=== PATIENT | female | born 1950 | race Caucasian/White ===

== ENCOUNTER → 2017-04-06 | Outpatient (CLI) | payer MEDICARE, BC | END | disposition home or self-care (01) | LOC: LABWHC1 08:48 | PROVIDERS: ATTEND Orthopaedic Surgery Orthopaedic Surgery of the Spine | DX: Z01.812 Encounter for preprocedural laboratory examination (principal); Z01.83 Encounter for blood typing | CPT/HCPCS: 36415; 86850; 86900; 86901 ==

== ENCOUNTER 2017-04-11 09:00 | Day surgery (SDC) | payer MEDICARE, BC ==
[2017-04-03 16:24] VITALS: BMI 36.2
[~2017-04-11 09:00] MED LIST: BACITRACIN 50,000 UNIT, POLYMYXIN B 500,000 UNIT in SODIUM CHLORIDE 0.9% IRRIGATIO 1,00... IRRIGATION ONE; HYDROmorphone 0.5 MG/0.5 ML SYRINGE IVP PRN; LIDOCAINE 1% 20 ML VIAL (10MG/ML) FOR IV START INTRADERMA PRN; ONDANSETRON 4 MG/2 ML VIAL IVP ONE; ceFAZolin 2 GM in SODIUM CHLORIDE 0.9% 100 ML IVPB ONE
[2017-04-11] MEDS: LACTATED RINGERS 1,000 ML IV SCH (10:00)
[2017-04-11 10:05] LABS: Glucose,Whole Blood 200 mg/dL (75-99)
[2017-04-11] MEDS ORDERED: MIDAZOLAM 2 MG/2 ML VIAL ONE (10:24)
[2017-04-11] MEDS ORDERED: LIDOCAINE 1% INJ 10MG/ML (20 ML MDV) ONE (10:24)
[2017-04-11] MEDS ORDERED: fentaNYL (PF) 50 MCG/ML 2 ML AMP ONE (10:24)
[2017-04-11] MEDS ORDERED: GELATIN SPONGE,ABSORB (LARGE) 1 EACH SPONGE TOPICAL ONE (10:24)
[2017-04-11] MEDS ORDERED: GLYCOPYRROLATE 0.2 MG/ML 2 ML VIAL ONE (10:24)
[2017-04-11] MEDS ORDERED: PROPOFOL 10 MG/ML 20 ML VIAL IV ONE (10:24)
[2017-04-11] MEDS ORDERED: NEOSTIGMINE 1 MG/ML 10 ML VIAL ONE (10:24)
[2017-04-11] MEDS ORDERED: PHENYLEPHRINE-0.9% NACL SYG 1 MG/10 ML SYRINGE ONE (10:24)
[2017-04-11] MEDS ORDERED: THROMBIN (BOVINE) 5,000 UNIT VIAL TOPICAL ONE (10:24)
[2017-04-11] MEDS ORDERED: LIDOCAINE 0.5% (PF) 5 MG/ML (50 ML SDV) SQ ONE (10:24)
[2017-04-11] MEDS ORDERED: SUCCINYLCHOLINE CHLORIDE 100 MG/5 ML SYR IV ONE (10:24)
[2017-04-11] MEDS ORDERED: BUPIVACAINE (PF) 0.25% 30 ML VIAL SQ ONE (10:24)
[2017-04-11] MEDS ORDERED: ROCURONIUM BROMIDE 10 MG/ML 10 ML VIAL IV ONE (10:24)
[2017-04-11] MEDS ORDERED: methylPREDNISolone ACETATE 40 MG/ML 1 ML VIAL MISCELLANE ONE (11:42)
[2017-04-11] MEDS ORDERED: KETOROLAC 30 MG/ML 1 ML VIAL IVP PRN (12:00)
[2017-04-11] MEDS ORDERED: ONDANSETRON 4 MG/2 ML VIAL IVP PRN (12:00)
[2017-04-11] MEDS ORDERED: BENZOCAINE/MENTHOL LOZENG 1 EACH LOZENGE MUCOUS MEM PRN (12:00)
[2017-04-11] MEDS ORDERED: HYDROcodone/APAP 5-325MG 1 EACH TAB PO PRN (12:00)
[2017-04-11] MEDS ORDERED: HYDROmorphone 0.5 MG/0.5 ML SYRINGE IVP PRN (12:00)
[2017-04-11] MEDS ORDERED: HYDROmorphone 1 MG/ML 1 ML SYRINGE IVP PRN (12:00)
[2017-04-11] MEDS ORDERED: DIAZEPAM 5 MG TAB PO PRN (12:00)
[2017-04-11] MEDS ORDERED: MAGNESIUM HYDROXIDE 2,400 MG/10 ML CUP PO PRN (12:00)
[2017-04-11] MEDS ORDERED: HYDROcodone/APAP 10-325MG 1 EACH TAB PO PRN (12:03)
--- NOTE | 2017-04-11 12:10 | P.OP ---
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 Choudhary Premix Concrete Batcher: Leo MCDONNELL who is present throughout the entire the case persistence during positioning, dissection, exposure, visualization, and all crucial elements of the case as well as closure. Anesthesia: General anesthesia Estimated blood loss: Approximately 40 mL Complications: None apparent Components implanted: [employer] Coflex interlaminar stabilization device,10 mm at L2-3 Disposition: To recovery room in good stable condition. OPERATIVE INDICATIONS The patient has been having issues in their lower back and lower extremities. sheas having evidence of significant neurogenic claudication and spinal stenosis along with issues with lower extremity radiculopathy. her function has become progressively worse to the cause of her stenosis and neurogenic claudication and she was having worsening debility. She was found to have significant spinal stenosis at L2-3 which correlated well with his low back and lower extremity symptoms. she had a prior fusion from L3 to 5 which appeared stable. She has adjacent level degeneration at L2-3. She had gone through her decompression and fusion several years ago and had done well with that until the past several months where she is having worsening of her pain and symptoms which appear to stem from her adjacent level at L2-3. The patient has been through conservative treatment. she is not having any prolonged benefit despite aggressive conservative treatment Witherng the level of his stenosis and his propensity for the possibility of recurrent stenosis I felt that decompression with intralaminar stabilization would be a good benefit foher. We discussed various treatment options including surgery, and the patient wishes to proceed with surgery We discussed the risk, patient's alternatives and benefits of surgery including but not limited to, risk of bleeding risk of infection, risk of need for further surgery, risk of decreased , loss of motion, loss of function, nerve damage, paralysis, heart attack, blindness and . OPERATIVE SUMMARY After discussing all the risks, patient alternatives and benefits at length, the patient elected to proceed with surgical intervention, signed informed consent, and presented for their procedure. The patient was seen and examined in the preoperative holding area and the surgical site was marked. The patient was given antibiotics and brought to the operating room. The patient was sedated and intubated by anesthesia in standard fashion. The patient was positioned on to the operating room table in a prone position on the appropriate frame which was well-padded and well molded. We were careful to pad any bony prominences and pressure points. We were careful to maintain the patient's cervical spine and good neutral alignment and position throughout. The patient was prepped and draped in a normal standard fashion. An appropriate timeout and keystone protocol performed. We were able to proceed with the surgery. Fluoroscopy was utilized to establish the appropriate level. The local wound area was infiltrated with local anesthetic. An incision was made at the midline longitudinally over the appropriate levels At L2-3 utilizing her prior incision and cephalad. Dissection was taken down subcutaneously to the level of the fascia which was split midline. Dissection was taken over the lamina. Intraoperative fluoroscopy was taken which showed a marker at the appropriate level at L2-3. With the appropriate level positively confirmed, we were able to proceed with laminectomy At L2-3 bilaterally. The wound was copiously irrigated and suctioned dry as had been done periodically throughout the case. I performed a laminectomy with a combination of curettes and a high-speed bur and Kerrison rongeurs. A small medial facetectomy was performed again further access. This was done bilaterally at that level. A partial foraminotomy was also performed Bilaterally to get good foraminal decompression. Portions of the ligamentum flavum were taken down to expose the dura and traversing nerve root. the ligament was significantly thickened as was the capsule around the facet joints bilaterally and these were removed to get good decompression centrally and at the neural foramen There is no evidence of dural tear or leak. Good hemostasis maintained. The wound was copiously irrigated and suctioned dry. Good decompression was noted. At this point further prepared the interspinous process and interlaminar space with a combination of curettes and a high-speed bur and Kerrison rongeurs. As able get good parallel alignment at the interspinous process space and interlaminar space. I used a trial spacer for the Coflex device and have good fit and fill with the appropriate size device. I had to shave down the spinous process at to allow for appropriate positioning of the Coflex device. The device was prepared and then positioned and malleted in position with good alignment and good position and good bony purchase at the interlaminar space. The position was checked and found to be approximately 3 mm away from the dura without impingement on the dura itself. It was checked and found to be stable. Intraoperative C-arm was utilized to confirm the alignment and position at the appropriate levelsAt L2-3 with the hardware at L3 to L5 stable. We were able to proceed with closure. The fascia was closed for a watertight closure. The subcuticular tissue was closed with absorbable suture. The wound was cleaned and dried and dressed with the appropriate dressing. The drapes were broken down. The patient was gently rolled back onto their hospital bed being careful to maintain their cervical spine and good neutral alignment and position. They were woken up by anesthesia, extubated, and brought to the recovery room in good stable condition. The patient will be admitted to the hospital for observation and for appropriate postoperative care, medical management and monitoring. We will continue to follow them closely about the postoperative course.
[2017-04-11 12:29] LABS: Glucose,Whole Blood 188 mg/dL (75-99)
--- NOTE | 2017-04-11 12:43 | FL ---
EXAMINATION TYPE: FL guidance operating room DATE OF EXAM: 04/11/2017 CLINICAL HISTORY: Back pain TECHNIQUE: Fluoroscopy. COMPARISON: None. FINDINGS/IMPRESSION: Fluoroscopic guidance was provided during procedure performed by Dr. Faust. A total of 7 seconds of fluoroscopic time was utilized during the procedure.
[2017-04-11] MEDS: SODIUM CHLORIDE 0.9% 1,000 ML IV SCH (13:09)
[2017-04-11] MEDS: HYDROcodone/APAP 5-325MG 1 EACH TAB PO PRN ×3 (13:28→22:41)
--- NOTE | 2017-04-11 13:49 | XR ---
EXAMINATION TYPE: XR lumbar spine 2 or 3V DATE OF EXAM: 04/11/2017 CLINICAL HISTORY: Back pain. Laminectomy. TECHNIQUE: Fluoroscopy. COMPARISON: None. FINDINGS/IMPRESSION: Fluoroscopic guidance was provided during procedure performed by Dr. Choudhary. 1 paper film was acquired.
[2017-04-11 17:34] LABS: Glucose,Whole Blood 197 mg/dL (75-99)
[2017-04-11] MEDS: ceFAZolin 2 GM in SODIUM CHLORIDE 0.9% 100 ML IVPB SCH (18:13)
[2017-04-11] MEDS: INSULIN LISPRO (humaLOG) 300 UNIT/3 ML VIAL SQ SCH (18:13)
[2017-04-11 20:32] LABS: Glucose,Whole Blood 92 mg/dL (75-99)
[2017-04-11] MEDS: GABAPENTIN 300 MG CAP PO SCH (20:57)
[2017-04-11] MEDS ORDERED: SERTRALINE 100 MG TAB PO SCH (21:00)
[2017-04-12] MEDS: ceFAZolin 2 GM in SODIUM CHLORIDE 0.9% 100 ML IVPB SCH (02:44)
[2017-04-12] MEDS: HYDROcodone/APAP 5-325MG 1 EACH TAB PO PRN (02:44)
[2017-04-12 07:31] LABS: Glucose,Whole Blood 190 mg/dL (75-99)
[2017-04-12] MEDS: SODIUM CHLORIDE 0.9% 1,000 ML IV SCH (07:33)
[2017-04-12] MEDS: LACTATED RINGERS 1,000 ML IV SCH (07:33)
[2017-04-12 07:45] VITALS: BP 138/74; PULSE 67; RESP 18; TEMP 98.2
[2017-04-12] MEDS: INSULIN LISPRO (humaLOG) 300 UNIT/3 ML VIAL SQ SCH (07:48)
[2017-04-12] MEDS: GABAPENTIN 300 MG CAP PO SCH (07:51)
--- NOTE | 2017-04-12 07:51 | P.DS ---
Providers Date of admission: The patient presented on the day of admission as per her operative note. She feels her legs are doing quite well. She feels that she has some relief with the pain in her legs when she gets up. She has been able get up out of bed and has been able to void on her own. Her back is sore as expected but is controlled with pain medication. Physical Exam The incision site is clean dry and intact. There is no erythema no drainage. There is no purulence no evidence of infection. There is no active drainage Abdomen soft and nontender. Chest has good excursion with deep inspiration and expiration. The patient has active and passive range of motion intact at the upper and lower extremities. There is no acute change in neurologic status. She has sustained dorsiflexion plantar flexion and EHL intact at her lower extremities. Her thighs and calves are soft and nontender. Hospital Course Postoperative day #1 status post laminectomy decompression at L2 to 3 where she had severe spinal stenosis and adjacent level degeneration with prior history of fusion L3 to 5. She had placement of a interlaminar stabilization device which appears to be stable. The patient has been making good progress postoperatively. They have completed the prophylactic antibiotics without any signs or symptoms of infection. The patient has been able to advance their diet, and is tolerating diet adequately. The pain was initially controlled with IV medications and is now controlled appropriately with oral medications. The patient has been able to increase their mobilization. The patient has progressed appropriately. I think they are in good stable condition for discharge today. They will be sent home with appropriate prescriptions. I answered their questions to the best of my ability in a language that they can understand and they are agreeable with the plan. They will follow up as directed in approximately 2 weeks or sooner if she is having any problems. Attending physician: Sandra Choudhary Primary care physician: Cora Terry Plan - Discharge Summary New Discharge Prescriptions: No Action Temazepam 30 mg PO HS Sertraline HCl [Zoloft] 100 mg PO HS Rosuvastatin Calcium [Crestor] 10 mg PO Q48H rOPINIRole HCL [Requip] 1.0 mg PO HS Gabapentin [Neurontin] 600 mg PO BID Benazepril [Lotensin] 10 mg PO QAM HYDROcodone/APAP 10-325MG [Rudyard 10-325] 1 each PO Q4HR PRN #90 tab PRN Reason: Pain INSULIN LISPRO (HumaLOG) [HumaLOG] 60 unit SQ BID tiZANidine HCL [Zanaflex] 2 mg PO BID Discharge Medication List Benazepril [Lotensin] 10 mg PO QAM 05/28/14 [History] Gabapentin [Neurontin] 600 mg PO BID 05/28/14 [History] Rosuvastatin Calcium [Crestor] 10 mg PO Q48H 05/28/14 [History] Sertraline HCl [Zoloft] 100 mg PO HS 05/28/14 [History] Temazepam 30 mg PO HS 05/28/14 [History] rOPINIRole HCL [Requip] 1.0 mg PO HS 05/28/14 [History] HYDROcodone/APAP 10-325MG [Rudyard 10-325] 1 each PO Q4HR PRN #90 tab 06/11/14 [Rx ] INSULIN LISPRO (HumaLOG) [HumaLOG] 60 unit SQ BID 04/03/17 [History] tiZANidine HCL [Zanaflex] 2 mg PO BID 04/03/17 [History] Follow up Appointment(s)/Referral(s): Sandra Choudhary DO [Doctor of Osteopathic Medicine] - 2 Weeks (With Leo Ramsey at Dr. Choudhary's office) Activity/Diet/Wound Care/Special Instructions: May ambulate to tolerance. Avoid heavy or rigorous activity. No repetitive bending stooping or twisting. Keep site clean. May shower with waterproof Tegaderm intact. Do not soak in a tub. On Sunday May shower with area uncovered but leave Steri-Strips intact and allow them to fray off on their own. Discharge Disposition: HOME SELF-CARE
[2017-04-12] MEDS ORDERED: SENNOSIDES-DOCUSATE SODIUM 1 EACH TAB PO SCH (09:00)
[2017-04-12] MEDS ORDERED: LISINOPRIL 10 MG TAB PO SCH (09:00)
[2017-04-12 12:53] LABS: Hemoglobin A1C 8.8 % (4.2-6.1)
[2017-04-12] MEDS ORDERED: ATORVASTATIN 20 MG TAB PO SCH (21:00)
== END 2017-04-12 10:10 | disposition home or self-care (01) ==
LOC: OR 09:00 → 3SUR 12:08 → OR 04-12 10:10
PROVIDERS: ATTEND Orthopaedic Surgery Orthopaedic Surgery of the Spine
DX: M48.062 Spinal stenosis, lumbar region with neurogenic claudication (principal); M51.16 Intervertebral disc disorders with radiculopathy, lumbar region; M47.26 Other spondylosis with radiculopathy, lumbar region; Z98.1 Arthrodesis status; I10 Essential (primary) hypertension; E11.9 Type 2 diabetes mellitus without complications; Z79.4 Long term (current) use of insulin; F32.9 Major depressive disorder, single episode, unspecified; Z87.891 Personal history of nicotine dependence; E78.5 Hyperlipidemia, unspecified; Z79.891 Long term (current) use of opiate analgesic; Z79.899 Other long term (current) drug therapy; Z88.1 Allergy status to other antibiotic agents; Z88.5 Allergy status to narcotic agent; Z88.2 Allergy status to sulfonamides
CPT/HCPCS: 63047; 22859; 97161; 83036; 72100; C1713; J2250; J1030; J2710; J0690 ×2; J2405; J2001 ×2; J3010; J2370; J0330; J2704; 36415; 86850; 86900; 86901

== ENCOUNTER → 2017-07-17 | Outpatient (CLI) | payer MEDICARE, BC ==
[2017-07-17 16:22] LABS: Blood Urea Nitrogen 14 mg/dL (7-17)
--- NOTE | 2017-07-17 21:56 | CT ---
EXAMINATION TYPE: CT abdomen w con DATE OF EXAM: 07/17/2017 HISTORY: Upper Abdominal discomfort for 6 months. Generalized abdominal pain per order. CT DLP: 1478.9mGycm Automated Exposure Control for Dose Reduction was Utilized. CONTRAST: CT scan of the abdomen is performed with oral and with IV Contrast, patient injected with 100 mL of O mnipaque 300. COMPARISON: CT abdomen and pelvis July 25, 2010. FINDINGS: LUNG BASES: There is elevated right hemidiaphragm with chronic right basilar consolidation or scarrin g. There is left basilar linear scarring and/or atelectasis anteriorly. There is stable tiny pericard ial effusion anterior inferior right lateral aspect near axial image 25 redemonstrated. LIVER/GB: No significant abnormality is appreciated. PANCREAS: No significant abnormality is seen. SPLEEN: No significant abnormality is seen. ADRENALS: No significant abnormality is seen. KIDNEYS: No significant abnormality is seen. BOWEL: Oral contrast does not reach colonic level. There is no suspicious small or large bowel dilata tion. LYMPH NODES: No greater than 1cm abdominal lymph nodes are appreciated. OSSEOUS STRUCTURES: There is new posterior fusion hardware bilaterally L3-L5 levels. There is artific ial metallic disc L4-L5 level. There is moderate to severe disc space narrowing endplate sclerosis, v acuum disc phenomenon, and moderate anterior spurring L2-L3 level. There is additional moderate multi level spurring throughout the visualized thoracolumbar spine. There is moderate to severe disc space narrowing with vacuum disc phenomenon L5-S1 level. OTHER: No significant additional abnormality is seen. IMPRESSION: No significant new or acute finding is seen to account for patient's clinical symptoms.
== END | disposition home or self-care (01) ==
LOC: RADCTMAIN 15:50
PROVIDERS: ATTEND Family Medicine
DX: R10.84 Generalized abdominal pain (principal)
CPT/HCPCS: 82565; 84520; 74160; 36415; Q9967

== ENCOUNTER → 2018-01-23 | Outpatient (CLI) | payer MEDICARE, BC ==
--- NOTE | 2018-01-25 10:40 | MM ---
Reason for exam: screening (asymptomatic). Last mammogram was performed 6 years and 5 months ago. History: Family history of breast cancer in mother at age 72. Benign left mammotome panel of the left breast, January 18, 2009. Reductions of both breasts, 1986. Took estrogen for 25 years beginning at age 29. Physical Findings: A clinical breast exam by your physician is recommended on an annual basis and results should be correlated with mammographic findings. MG 3D Screening Mammo W/Cad Bilateral CC and MLO view(s) were taken. Prior study comparison: August 16, 2011, bilateral digital screening mammo w/CAD. February 23, 2010, bilateral diagnostic digital mammog. There are scattered fibroglandular densities. Increasing nodularity posteriorly on both CC views. Also increasing 3-4 o'clock calcifications left breast adjacent to a prior biopsy clip. ASSESSMENT: Incomplete: need additional imaging evaluation, BI-RAD 0 RECOMMENDATION: Special view mammogram of both breasts. If lesion persists on supplemental views, image directed ultrasound is recommended. [facility] will attempt to contact patient to return for supplemental views and ultrasound if indicated.
== END | disposition home or self-care (01) ==
LOC: RADMAMWWP 09:22
PROVIDERS: ATTEND Family Medicine
DX: Z12.31 Encounter for screening mammogram for malignant neoplasm of breast (principal); Z80.3 Family history of malignant neoplasm of breast
CPT/HCPCS: 77063; 77067

== ENCOUNTER → 2018-02-04 | Outpatient (CLI) | payer MEDICARE, BC ==
--- NOTE | 2018-02-06 12:59 | MM ---
Reason for exam: additional evaluation requested from abnormal screening. Last mammogram was performed less than 1 month ago. History: Patient is postmenopausal. Family history of breast cancer in mother at age 72. Benign left mammotome panel of the left breast, January 18, 2009. Reductions of both breasts, 1986. Took estrogen for 25 years beginning at age 29. Physical Findings: Nurse did not find any significant physical abnormalities on exam. MG 3D Work Up W/Cad MARSHA Bilateral CC and MLO view(s) were taken. Technologist: RT Maribel (R)(M) Prior study comparison: January 23, 2018, bilateral MG 3d screening mammo w/cad. August 16, 2011, bilateral digital screening mammo w/CAD. Finding: There are coarse heterogeneous calcifications in the left breast at clip through increase in number since 2011 have similar morphology to prior biopsied calcifications. There is a chronic nodularity in the left breast persists. These results were verbally communicated with the patient and result sheet given to the patient on 02/04/18. ASSESSMENT: Incomplete: need additional imaging evaluation, BI-RAD 0 RECOMMENDATION: Ultrasound of the left breast. (inner lower quadrant)
--- NOTE | 2018-02-06 13:01 | USB ---
Reason for exam: additional evaluation requested from abnormal screening. History: Patient is postmenopausal. Family history of breast cancer in mother at age 72. Benign left mammotome panel of the left breast, January 18, 2009. Reductions of both breasts, 1986. Took estrogen for 25 years beginning at age 29. US Breast Workup Limited LT Left limited breast ultrasound including focal area of concern, retroareolar and axilla demonstrates a 0.4 x 0.3 x 0.3cm oval, hypoechoic lesion too small to characterize at 4 o'clock and a 0.5 x 0.3 x 0.4cm oval, cystic lesion at 5 o'clock. These results were verbally communicated with the patient and result sheet given to the patient on 02/04/18. ASSESSMENT: Probably benign, BI-RAD 3 RECOMMENDATION: Follow-up diagnostic mammogram of the left breast in 6 months.
== END | disposition home or self-care (01) ==
LOC: RADMAMWWP 07:39
PROVIDERS: ATTEND Family Medicine
DX: R92.8 Other abnormal and inconclusive findings on diagnostic imaging of breast (principal)
CPT/HCPCS: 77066; 76642; G0279; 77062

== ENCOUNTER 2019-03-05 11:36 | Inpatient (IN) | payer MEDICARE, BC ==
[2019-03-05] MEDS ORDERED: SODIUM CHLORIDE 0.9% 1,000 ML IV STA ×2 (12:06)
[2019-03-05] MEDS ORDERED: SODIUM CHLORIDE 0.9% 500 ML 500 ML IV STA (12:06)
[2019-03-05] MEDS ORDERED: ONDANSETRON 4 MG/2 ML VIAL IVP STA (12:06)
--- NOTE | 2019-03-05 12:20 | ED ---
Dizziness HPI - General Chief Complaint: Dizziness Stated Complaint: Vertigo, Nausea, ABd Pain Time Seen by Provider: 03/05/19 11:51 Source: patient, EMS, RN notes reviewed, old records reviewed Mode of arrival: EMS Limitations: no limitations - History of Present Illness Initial Comments: This is a 69-year-old female the ER for evaluation. She presents today for evaluation regards to dizziness dizziness and room spinning walking around falls. Patient states symptoms for a few days never prior symptoms before denies any recent ear pain, does wear bilateral hearing aids and occasionally gets serum impaction right ear. Patient denies any vision changes no weakness or leg issues no numbness or paresthesias of arms or legs. No strength loss. Patient occasionally has had some headache and some neck pain over the last 2 days as well. No recent traumas no blood thinners mildly nauseous with no vomiting she does have history of diabetes high blood pressure and Cholesterol MD Complaint: dizziness, lightheadedness -: days(s) Timing: gradual onset Description: sense of movement, "room spinning", off-balance, difficulty walking History of Same: No History of Trauma: No Severity: moderate Improves With: remaining still Worsens With: movement Associated Symptoms: ataxia, other (headache) - Related Data Home Medications Medication Instructions Recorded Confirmed Benazepril [Lotensin] 10 mg PO DAILY 05/28/14 03/05/19 Gabapentin [Neurontin] 600 mg PO BID 05/28/14 03/05/19 Rosuvastatin Calcium [Crestor] 5 mg PO Q48H 05/28/14 03/05/19 Sertraline HCl [Zoloft] 100 mg PO DAILY 05/28/14 03/05/19 INSULIN LISPRO (HumaLOG) [HumaLOG] 60 unit SQ BID 04/03/17 03/05/19 Cyanocobalamin (Vitamin B-12) 1,000 mcg PO DAILY 03/05/19 03/05/19 [Vitamin B-12] EPINEPHrine (Auto Inject) [Epipen] 0.3 mg IM ONCE PRN 03/05/19 03/05/19 Ergocalciferol (Vitamin D2) 50,000 unit PO Q7D 03/05/19 03/05/19 [Vitamin D2] Omeprazole [PriLOSEC] 20 mg PO DAILY 03/05/19 03/05/19 Repaglinide [Prandin] 3 mg PO TID 03/05/19 03/05/19 hydrOXYzine HCL 10 mg PO HS 03/05/19 03/05/19 rOPINIRole HCL [Requip] 1 mg PO BID 03/05/19 03/05/19 tiZANidine [Zanaflex] 2 mg PO BID PRN 03/05/19 03/05/19 Allergies Allergy/AdvReac Type Severity Reaction Status Date / Time propoxyphene HCl Allergy Severe Hallucinati Verified 03/05/19 12:09 [From Darvon] ons clindamycin Allergy Rash/Hives Verified 03/05/19 12:09 Sulfa (Sulfonamide Allergy Swelling Verified 03/05/19 12:09 Antibiotics) Review of Systems ROS Statement: Those systems with pertinent positive or pertinent negative responses have been documented in the HPI. ROS Other: All systems not noted in ROS Statement are negative. Past Medical History Past Medical History: Diabetes Mellitus, GERD/Reflux, Hyperlipidemia, Hypertension, Osteoarthritis (OA), Rheumatoid Arthritis (RA) Additional Past Medical History / Comment(s): deteriorating disks History of Any Multi-Drug Resistant Organisms: None Reported Past Surgical History: Breast Surgery, Section, Hysterectomy, Joint Replacement, Tonsillectomy, Tubal Ligation Additional Past Surgical History / Comment(s): brendan knee replacements, brendan cataracts, breast reduction, Lumbar cage inserted. Past Anesthesia/Blood Transfusion Reactions: No Reported Reaction Past Psychological History: Depression Smoking Status: Never smoker Past Alcohol Use History: Rare Past Drug Use History: None Reported - Past Family History Mother Family Medical History: Cancer Additional Family Medical History / Comment(s): Breast General Exam - General Exam Comments Initial Comments: NIH is 0 [id number] is intact Heel to renteria negative Limitations: no limitations General appearance: alert, in no apparent distress Head exam: Present: atraumatic, normocephalic, normal inspection Eye exam: Present: normal appearance, PERRL, EOMI. Absent: scleral icterus, conjunctival injection, periorbital swelling ENT exam: Present: normal exam, mucous membranes moist Neck exam: Present: normal inspection. Absent: tenderness, meningismus, lymphadenopathy Respiratory exam: Present: normal lung sounds bilaterally. Absent: respiratory distress, wheezes, rales, rhonchi, stridor Cardiovascular Exam: Present: regular rate, normal rhythm, normal heart sounds. Absent: systolic murmur, diastolic murmur, rubs, gallop, clicks GI/Abdominal exam: Present: soft, normal bowel sounds. Absent: distended, tenderness, guarding, rebound, rigid Extremities exam: Present: normal inspection, full ROM, normal capillary refill. Absent: tenderness, pedal edema, joint swelling, calf tenderness Back exam: Present: normal inspection Neurological exam: Present: alert, oriented X3, CN II-XII intact Psychiatric exam: Present: normal affect, normal mood Skin exam: Present: warm, dry, intact, normal color. Absent: rash Course Vital Signs 03/05/19 03/05/19 11:37 13:18 Temperature 98.6 F Pulse Rate 79 Respiratory 18 18 Rate Blood Pressure 133/87 O2 Sat by Pulse 96 Oximetry - Reevaluation(s) Reevaluation #1: 03/05/19 12:20 Medical records reviewed Reevaluation #2: 03/05/19 13:58 Patient's dizziness is mildly improved nausea is mildly improved Reevaluation #3: 03/05/19 13:58 Patient denies chest pain or shortness of breath EKG Findings - EKG Comments: EKG Findings:: EKG shows sinus rhythm rate of 71, VA 180, QRS 112, QTc 478 Medical Decision Making - Medical Decision Making 69 female the ER for evaluation primary complaint is dizziness and difficulty with ambulation. Difficulty with Balance. Patient does have elevated troponin non-STEMI, will hold heparin secondary possible mild posterior CVA causing dizziness. Patient does have high blood pressure cholesterol history. We'll admit for cardiology and neurology to evaluate further. Patient given aspirin here in ER - Lab Data Result diagrams: 03/05/19 12:25 03/05/19 12:25 Lab Results 03/05/19 03/05/19 03/05/19 Range/Units 12:25 12:25 12:25 WBC 7.5 (3.8-10.6) k/uL RBC 4.93 (3.80-5.40) m/uL Hgb 14.4 (11.4-16.0) gm/dL Hct 45.3 (34.0-46.0) % MCV 91.9 (80.0-100.0) fL MCH 29.3 (25.0-35.0) pg MCHC 31.9 (31.0-37.0) g/dL RDW 13.3 (11.5-15.5) % Plt Count 121 L (150-450) k/uL Neutrophils % 66 % Lymphocytes % 24 % Monocytes % 6 % Eosinophils % 2 % Basophils % 1 % Neutrophils # 4.9 (1.3-7.7) k/uL Lymphocytes # 1.8 (1.0-4.8) k/uL Monocytes # 0.4 (0-1.0) k/uL Eosinophils # 0.2 (0-0.7) k/uL Basophils # 0.1 (0-0.2) k/uL PT 10.1 (9.0-12.0) sec INR 0.9 (<1.2) APTT 23.6 (22.0-30.0) sec Sodium 140 (137-145) mmol/L Potassium 4.4 (3.5-5.1) mmol/L Chloride 106 (98-107) mmol/L Carbon Dioxide 24 (22-30) mmol/L Anion Gap 10 mmol/L BUN 25 H (7-17) mg/dL Creatinine 0.75 (0.52-1.04) mg/dL Est GFR (CKD-EPI)AfAm >90 (>60 ml/min/1.73 sqM) Est GFR (CKD-EPI)NonAf 81 (>60 ml/min/1.73 sqM) Glucose 270 H (74-99) mg/dL Calcium 9.4 (8.4-10.2) mg/dL Phosphorus 3.0 (2.5-4.5) mg/dL Magnesium 1.8 (1.6-2.3) mg/dL Total Bilirubin 0.5 (0.2-1.3) mg/dL AST 33 (14-36) U/L ALT 24 (9-52) U/L Alkaline Phosphatase 113 (38-126) U/L Creatine Kinase 135 (30-135) U/L Troponin I (0.000-0.034) ng/mL Total Protein 7.0 (6.3-8.2) g/dL Albumin 4.1 (3.5-5.0) g/dL Urine Color Urine Appearance (Clear) Urine pH (5.0-8.0) Ur Specific [place] (1.001-1.035) Urine Protein (Negative) Urine Glucose (UA) (Negative) Urine Ketones (Negative) Urine Blood (Negative) Urine Nitrite (Negative) Urine Bilirubin (Negative) Urine Urobilinogen (<2.0) mg/dL Ur Leukocyte Esterase (Negative) Urine RBC (0-5) /hpf Urine WBC (0-5) /hpf Ur Squamous Epith Cells (0-4) /hpf Urine Mucus (None) /hpf 03/05/19 03/05/19 Range/Units 12:25 12:25 WBC (3.8-10.6) k/uL RBC (3.80-5.40) m/uL Hgb (11.4-16.0) gm/dL Hct (34.0-46.0) % MCV (80.0-100.0) fL MCH (25.0-35.0) pg MCHC (31.0-37.0) g/dL RDW (11.5-15.5) % Plt Count (150-450) k/uL Neutrophils % % Lymphocytes % % Monocytes % % Eosinophils % % Basophils % % Neutrophils # (1.3-7.7) k/uL Lymphocytes # (1.0-4.8) k/uL Monocytes # (0-1.0) k/uL Eosinophils # (0-0.7) k/uL Basophils # (0-0.2) k/uL PT (9.0-12.0) sec INR (<1.2) APTT (22.0-30.0) sec Sodium (137-145) mmol/L Potassium (3.5-5.1) mmol/L Chloride (98-107) mmol/L Carbon Dioxide (22-30) mmol/L Anion Gap mmol/L BUN (7-17) mg/dL Creatinine (0.52-1.04) mg/dL Est GFR (CKD-EPI)AfAm (>60 ml/min/1.73 sqM) Est GFR (CKD-EPI)NonAf (>60 ml/min/1.73 sqM) Glucose (74-99) mg/dL Calcium (8.4-10.2) mg/dL Phosphorus (2.5-4.5) mg/dL Magnesium (1.6-2.3) mg/dL Total Bilirubin (0.2-1.3) mg/dL AST (14-36) U/L ALT (9-52) U/L Alkaline Phosphatase (38-126) U/L Creatine Kinase (30-135) U/L Troponin I 0.147 H* (0.000-0.034) ng/mL Total Protein (6.3-8.2) g/dL Albumin (3.5-5.0) g/dL Urine Color Yellow Urine Appearance Clear (Clear) Urine pH 5.5 (5.0-8.0) Ur Specific [place] 1.022 (1.001-1.035) Urine Protein Negative (Negative) Urine Glucose (UA) 4+ H (Negative) Urine Ketones Negative (Negative) Urine Blood Negative (Negative) Urine Nitrite Negative (Negative) Urine Bilirubin Negative (Negative) Urine Urobilinogen <2.0 (<2.0) mg/dL Ur Leukocyte Esterase Trace H (Negative) Urine RBC <1 (0-5) /hpf Urine WBC 1 (0-5) /hpf Ur Squamous Epith Cells 1 (0-4) /hpf Urine Mucus Rare H (None) /hpf - Radiology Data Radiology results: report reviewed (Chest x-rays negative for acute disease CT brain negative for acute disease), image reviewed Critical Care Time Critical Care Time: Yes Total Critical Care Time: 31 Disposition Clinical Impression: Dizziness, NSTEMI (non-ST elevated myocardial infarction) Disposition: ADMITTED IP TO THIS [facility] Condition: Fair Is patient prescribed a controlled substance at d/c from ED?: No Referrals: Cora Terry DO [Primary Care Provider] - 1-2 days
[2019-03-05 12:54] LABS: Basophils # (A) 0.1 k/uL (0-0.2); Basophils % (A) 1 %; Eosinophils # (A) 0.2 k/uL (0-0.7); Eosinophils % (A) 2 %; HCT 45.3 % (34.0-46.0); HGB 14.4 gm/dL (11.4-16.0); Lymphocytes # (A) 1.8 k/uL (1.0-4.8); Lymphocytes % (A) 24 %; MCH 29.3 pg (25.0-35.0); MCHC 31.9 g/dL (31.0-37.0); MCV 91.9 fL (80.0-100.0); Mean Platelet Volume 7.7; Monocytes # (A) 0.4 k/uL (0-1.0); Monocytes % (A) 6 %; Neutrophils # (A) 4.9 k/uL (1.3-7.7); Neutrophils % (A) 66 %; Platelet Count 121 k/uL (150-450); RBC 4.93 m/uL (3.80-5.40); RDW 13.3 % (11.5-15.5); WBC 7.5 k/uL (3.8-10.6)
[2019-03-05 12:59] LABS: INR 0.9 (<1.2); Partial Thromboplastin Time 23.6 sec (22.0-30.0); Prothrombin Time 10.1 sec (9.0-12.0)
[2019-03-05 13:01] LABS: Appearance,Urine Clear (Clear); Bilirubin,Urine Negative (Negative); Blood,Urine Negative (Negative); Color,Urine Yellow; Glucose,Urine (UA) 4+ (Negative); Ketones,Urine Negative (Negative); Leukocyte Esterase,Urine Trace (Negative); Mucus,Urine Rare /hpf; Nitrite,Urine Negative (Negative); PH, Urine 5.5 (5.0-8.0); Protein,Urine Negative (Negative); RBC,Urine <1 /hpf (0-5); Specific Gravity,Urine 1.022 (1.001-1.035); Squamous Epithelial Cell,Urine 1 /hpf (0-4); Urobilinogen,Urine <2.0 mg/dL (<2.0); WBC,Urine 1 /hpf (0-5)
[2019-03-05 13:02] LABS: ALT 24 U/L (9-52); AST 33 U/L (14-36); African American GFR (CKD) >90 (>60 ml/min/1.73 sqM); Albumin 4.1 g/dL (3.5-5.0); Alkaline Phosphatase 113 U/L (38-126); Anion Gap 10 mmol/L; Blood Urea Nitrogen 25 mg/dL (7-17); Calcium 9.4 mg/dL (8.4-10.2); Carbon Dioxide 24 mmol/L (22-30); Chloride 106 mmol/L (98-107); Creatine Kinase 135 U/L (30-135); Glucose 270 mg/dL (74-99); Magnesium 1.8 mg/dL (1.6-2.3); Potassium 4.4 mmol/L (3.5-5.1); Sodium 140 mmol/L (137-145); Total Bilirubin 0.5 mg/dL (0.2-1.3)
--- NOTE | 2019-03-05 13:33 | XR ---
EXAMINATION TYPE: XR chest 2V DATE OF EXAM: 03/05/2019 COMPARISON: 06/01/2014 INDICATION: Weakness nausea and dizziness TECHNIQUE: Frontal and lateral views of the chest are obtained. FINDINGS: The heart size is normal. The pulmonary vasculature is normal. The lungs are clear. There is chronic elevation of the right diaphragm. IMPRESSION: 1. No acute pulmonary process.
[2019-03-05] MEDS ORDERED: ASPIRIN 81 MG PO STA (13:55)
[2019-03-05] MEDS ORDERED: NITROGLYCERIN SL TABS 0.4 MG TAB SUBLINGUAL PRN (13:55)
--- NOTE | 2019-03-05 14:45 | CT ---
EXAMINATION TYPE: CT brain wo con DATE OF EXAM: 03/05/2019 COMPARISON: None HISTORY: 69-year-old female Dizziness TECHNIQUE: Examination was done in axial plane without intravenous contrast. Coronal and sagittal r econstructions performed. CT DLP: 1005.4 mGycm Automated exposure control for dose reduction was used. FINDINGS: There is no evidence of acute intracranial hemorrhage, acute ischemic changes, mass, mass-effect, or extra-axial fluid collection. There is no effacement of cerebral sulci or basal subarachnoid cister ns. There is no hydrocephalus. There is no midline shift. Heller-white matter distinction is preserv ed. Mild bifrontal cerebral cortical atrophy. Punctate benign basal ganglia calcifications on the right. Benign cerebellar tonsillar ectopia on the right. Normal variation of hyperostosis frontalis interna. Rightward nasal septal deviation. Paranasal sinus es and mastoid air cells well pneumatized. Orbits and globes are intact. IMPRESSION: No acute intracranial abnormality seen.
[2019-03-05 19:07] VITALS: BMI 36.3
[2019-03-05 20:25] LABS: Glucose,Whole Blood 188 mg/dL (75-99)
[2019-03-05] MEDS: GABAPENTIN 300 MG CAP PO SCH (20:58)
[2019-03-05] MEDS: INSULIN ASPART (NovoLOG) 100 UNIT/ML VIAL SQ SCH (20:58)
[2019-03-05] MEDS: METOPROLOL TARTRATE 25 MG TAB PO SCH (20:59)
[2019-03-05] MEDS ORDERED: SCOPOLAMINE 1.5MG/72HR PATCH TRANSDERM SCH (21:00)
[2019-03-05] MEDS: SODIUM CHLORIDE 0.9% 1,000 ML IV SCH (21:00)
--- NOTE | 2019-03-05 21:14 | P.CNNES ---
History of Present Illness Consult date: 03/05/19 Requesting physician: Tee Castelan Reason for Consult: Dizziness Chief complaint: Dizziness x 3 days History of Present Illness: This is a 69 RH female who experienced abrupt onset of episodic room-spinning sensation and a fullness/pain that arises from the posterior neck to the back of the cranium. Denies recent head/neck trauma, chiropractic manipulation or heavy lifting. No recent URI or vaccination. She does have bilateral hearing loss and wears hearing aids. She also has tinnitus that is worse when the hearing aids are not put in. Her balance is off as well. Neurologically, denies decreased level or loss of consciousness, drop attacks, seizure, changes in vision, diplopia, amaurosis, facial numbness or droop, dysarthria, dysphagia, aphasia, alternating or hemianesthesia or paresis, tremors or bowel/bladder incontinence. She tried to tough it out for 3 days but since her symptoms did not improve, she presented to the ER. Vascular risk factors are HTN, DM and HL. Review of Systems I have performed a 14-point organ ROS with patient; pertinents are as per HPI. Past Medical History Past Medical History: Diabetes Mellitus, GERD/Reflux, Hyperlipidemia, Hypertension, Osteoarthritis (OA), Rheumatoid Arthritis (RA) Additional Past Medical History / Comment(s): deteriorating disks History of Any Multi-Drug Resistant Organisms: None Reported Past Surgical History: Breast Surgery, Section, Hysterectomy, Joint Replacement, Tonsillectomy, Tubal Ligation Additional Past Surgical History / Comment(s): brendan knee replacements, brendan cataracts, breast reduction, Lumbar cage inserted. Past Anesthesia/Blood Transfusion Reactions: No Reported Reaction Past Psychological History: Depression Smoking Status: Never smoker Past Alcohol Use History: Rare Past Drug Use History: None Reported - Past Family History Mother Family Medical History: Cancer Additional Family Medical History / Comment(s): Breast Medications and Allergies Home Medications Medication Instructions Recorded Confirmed Type Benazepril [Lotensin] 10 mg PO DAILY 05/28/14 03/05/19 History Gabapentin [Neurontin] 600 mg PO BID 05/28/14 03/05/19 History Rosuvastatin Calcium [Crestor] 5 mg PO Q48H 05/28/14 03/05/19 History Sertraline HCl [Zoloft] 100 mg PO DAILY 05/28/14 03/05/19 History INSULIN LISPRO (HumaLOG) [HumaLOG] 60 unit SQ BID 04/03/17 03/05/19 History Cyanocobalamin (Vitamin B-12) 1,000 mcg PO DAILY 03/05/19 03/05/19 History [Vitamin B-12] EPINEPHrine (Auto Inject) [Epipen] 0.3 mg IM ONCE PRN 03/05/19 03/05/19 History Ergocalciferol (Vitamin D2) 50,000 unit PO Q7D 03/05/19 03/05/19 History [Vitamin D2] Omeprazole [PriLOSEC] 20 mg PO DAILY 03/05/19 03/05/19 History Repaglinide [Prandin] 3 mg PO TID 03/05/19 03/05/19 History hydrOXYzine HCL 10 mg PO HS 03/05/19 03/05/19 History rOPINIRole HCL [Requip] 1 mg PO BID 03/05/19 03/05/19 History tiZANidine [Zanaflex] 2 mg PO BID PRN 03/05/19 03/05/19 History Allergies Allergy/AdvReac Type Severity Reaction Status Date / Time propoxyphene HCl Allergy Severe Hallucinati Verified 03/05/19 12:09 [From Harry] ons clindamycin Allergy Rash/Hives Verified 03/05/19 12:09 Sulfa (Sulfonamide Allergy Swelling Verified 03/05/19 12:09 Antibiotics) Physical Examination - Vital Signs Vital Signs: Vital Signs Temp Pulse Pulse Resp BP BP Pulse Ox 03/05/19 18:18 98.4 F 71 20 164/84 03/05/19 17:00 98.0 F 72 18 125/74 97 03/05/19 15:20 97.9 F 70 18 127/72 96 03/05/19 13:59 75 18 145/87 97 03/05/19 13:18 18 03/05/19 11:37 98.6 F 79 18 133/87 96 Intake and Output 03/05/19 03/05/19 03/05/19 06:59 14:59 22:59 Intake Total 240 Balance 240 Intake: Oral 240 Other: # Voids 3 Weight 90.718 kg Gen NAD Pleasant and cooperative HEENT NCAT Sclera without icterus O/P clear Neck Supple No carotid bruit Cor RRR no m/r/g Lungs CTAB Abd Soft NTND +BS Ext Warm to touch No edema Neuro MS A+Ox4 Normal fluency Able to follow all commands CN PERRL VFF no APD EOMI right lateral nystagmus that habituates within 10 seconds negative skew did not perform head impulse as she is nauseated No RUDDY No facial asymmetry Masseter's symmetric Hearing diminished to normal voice bilaterally Speech not dysarthric Equal elevation of palate Tongue midline Sym shrug and SCM bilaterally Motor Normal bulk/tone No pronator drift or tremors Strength 5/5 sym throughout Sens Intact to LT x4 No neglect Coord No dysmetria on FTN bilaterally DTRs 2+/4 sym throughout Toes downgoing bilaterally No clonus at achilles Gait Deferred NIHSS 0 Results - Laboratory Findings CBC and BMP: 03/05/19 12:25 03/05/19 12:25 Abnormal Lab Findings: Abnormal Labs 03/05/19 03/05/19 03/05/19 12:25 12:25 12:25 Plt Count 121 L BUN 25 H Glucose 270 H POC Glucose (mg/dL) Troponin I 0.147 H* Urine Glucose (UA) Ur Leukocyte Esterase Urine Mucus 03/05/19 03/05/19 03/05/19 12:25 18:22 20:17 Plt Count BUN Glucose POC Glucose (mg/dL) 188 H Troponin I 0.139 H* Urine Glucose (UA) 4+ H Ur Leukocyte Esterase Trace H Urine Mucus Rare H - Diagnostic Findings Additional findings: CT Head wo cont 03/05/19. Mild frontal atrophy. No ICH. Nil acute. I have reviewed neuroimages myself. Assessment and Plan Assessment: Acute onset of vertigo- based on exam, leaning towards peripheral, but patient would like further neuroimaging to r/o CVA and other intracranial structural explanation. Plan: -MRI Brain and IAC w wo jr -Carotid duplex -Scopolamine patch. May cut in 1/2 if blurred vision or mouth too dry -ASA ordered by ER. Looks like she may have an NSTEMI. Cardiology consulted by ER -Ibuprofen prn posterior headache. Do not wish to prescribe anything too strong as will need to follow her neuro status -May treat BP to normotensive range but avoid hypotension -Fasting lipids in am -PT for vestibular rehab -DVT prophylaxis -d/w patient in detail. All questions answered. Thank you for this consultation. Please call with ?. Time with Patient: Greater than 30 (Time spent in direct patient care, greater than 50% of which was spent in [id number] counseling and coordination of care: 70 minutes)
[2019-03-05] MEDS: hydrOXYzine HCL 10 MG TAB PO SCH (21:44)
[2019-03-05] MEDS: IBUPROFEN 600 MG TAB PO PRN (21:45)
[2019-03-06 04:30] LABS: Cholesterol 149 mg/dL (<200); HDL Cholesterol 39 mg/dL (40-60); LDL Cholesterol,Calculated 78 mg/dL (0-99); Triglycerides 161 mg/dL (<150)
[2019-03-06 06:28] LABS: Glucose,Whole Blood 173 mg/dL (75-99)
[2019-03-06] MEDS: SODIUM CHLORIDE 0.9% 1,000 ML IV SCH ×2 (06:33→11:03)
[2019-03-06] MEDS: INSULIN ASPART (NovoLOG) 100 UNIT/ML VIAL SQ SCH ×4 (06:33→20:49)
[2019-03-06] MEDS ORDERED: ATORVASTATIN 80 MG TAB PO STA (08:48)
[2019-03-06] MEDS ORDERED: ALPRAZolam 0.25 MG TAB PO PRN (08:48)
[2019-03-06] MEDS ORDERED: SODIUM CHLORIDE 0.9% 1,000 ML in EMPTY BAG 1 BAG IV ONE (08:48)
[2019-03-06] MEDS ORDERED: ALPRAZolam 0.5 MG TAB PO PRN (08:48)
[2019-03-06] MEDS ORDERED: NITROGLYCERIN SL TABS 0.4 MG TAB SUBLINGUAL PRN (08:48)
[2019-03-06] MEDS ORDERED: ASPIRIN 325 MG TAB PO STA (08:48)
[2019-03-06] MEDS: PANTOPRAZOLE 40 MG TABLET PO SCH (08:55)
[2019-03-06] MEDS: GABAPENTIN 300 MG CAP PO SCH ×2 (08:55→20:41)
[2019-03-06] MEDS: LISINOPRIL 10 MG TAB PO SCH (08:55)
[2019-03-06] MEDS: METOPROLOL TARTRATE 25 MG TAB PO SCH ×2 (08:55→20:43)
[2019-03-06] MEDS: CYANOCOBALAMIN 500 MCG TAB PO SCH (08:56)
[2019-03-06] MEDS: IBUPROFEN 600 MG TAB PO PRN (08:56)
[2019-03-06] MEDS: SERTRALINE 100 MG TAB PO SCH (08:56)
[2019-03-06] MEDS ORDERED: ASPIRIN 325 MG TAB PO SCH (09:00)
[2019-03-06] MEDS ORDERED: ATORVASTATIN 80 MG TAB PO SCH (09:00)
--- NOTE | 2019-03-06 09:24 | US ---
EXAMINATION TYPE: US carotid duplex BILAT DATE OF EXAM: 03/06/2019 COMPARISON: NONE CLINICAL HISTORY: Dizziness. EXAM MEASUREMENTS: RIGHT: Peak Systolic Velocity (PSV) cm/sec ----- Right CCA: 49.3 ----- Right ICA: 127.6 tortuous ----- Right ECA: 49.9 ICA/CCA ratio: 2.6 RIGHT: End Diastole cm/sec ----- Right CCA: 17.1 ----- Right ICA: 49.9 ----- Right ECA: 4.5 LEFT: Peak Systolic Velocity (PSV) cm/sec ----- Left CCA: 55.6 ----- Left ICA: 73.5 ----- Left ECA: 49.8 ICA/CCA ratio: 1.3 LEFT: End Diastole cm/sec ----- Left CCA: 21.5 ----- Left ICA: 27.7 ----- Left ECA: 7.5 VERTEBRALS (direction of flow): Right Vertebral: Antegrade Left Vertebral: Antegrade Tortuous vessels. Mild plaque. IMPRESSION: Stenosis of 50-69% within the right internal carotid artery. Degree of stenosis could be more accurately assessed with CTA neck. Criteria for Assigning % of Stenosis / Diameter reduction (Estimation based on the indirect measurements of the internal carotid artery velocities (ICA PSV). 1. Normal (no stenosis)=ICA PSV < 125 cm/s: ratio < 2.0: ICA EDV<40 cm/s. 2. Less than 50% stenosis=ICA PSV < 125 cm/s: ratio < 2.0: ICA EDV<40 cm/s. 3. 50 to 69% stenosis=ICA PSV of 125 to 230 cm/s: ration 2.0 ? 4.0: ICA EDV 40-100 cm/s. 4. Greater than 70% stenosis to near occlusion= ICA PSV > 230 cm/s: ratio > 4.0: ICA EDV > 100 cm/s. 5. Near occlusion= ICA PSV velocities may be low or undetectable: variable ratio and ICA EDV. 6. Total occlusion=unable to detect flow.
--- NOTE | 2019-03-06 11:13 | MR ---
EXAMINATION TYPE: MR brain and iac wo/w con DATE OF EXAM: 03/06/2019 COMPARISON: CT brain from yesterday. HISTORY: Vertigo, tinnitus, ataxia, dizziness. TECHNIQUE: Multiplanar, multisequence images of the brain and brainstem is performed without and with IV contras t, utilizing 9 mL intravenous Gadavist . Complete imaging of the internal auditory canals was also pe rformed. FINDINGS: Exam noted suboptimal due to patient motion, patient is unable to stay awake thus there is no breath-holding and respiratory motion artifact degradation. Diffusion weighted images demonstrate no evidence of a recent infarct or other diffusion abnormality. There is no suspicious extra-axial f luid collection. The ventricular system and cisternal spaces are normal in size and appearance. The brain volume is age appropriate. Few scattered tiny foci of T2 hyperintensity is seen throughout the white matter bilaterally. Midline structures demonstrate normal morphology. The craniocervical junction appears within normal limits. Post contrast images demonstrate no abnormal enhancement. The dural venous sinuses appear pa tent. Mild mucosal thickening inferior maxillary sinuses with possible some fluid or cyst inferiorly right maxillary sinus axial image 5. Correlate clinically. Motion artifact degradation is present. Na kulwinder septum is redemonstrated deviated to the right of midline. Some patchy fluid signal inferior aspect left mastoid air cells is present. The vestibulocochlear com plexes are symmetric and felt within normal limits. There is no suspicious enhancing cerebellopontine angle mass identified bilaterally. IMPRESSION: 1. Possible mild left-sided inferior mastoiditis, correlate clinically. 2. Possible mild acute inferior right maxillary sinusitis, correlate clinically. 3. Mild chronic small vessel ischemic changes. No suspicious enhancement noted.
[2019-03-06 11:57] LABS: Glucose,Whole Blood 159 mg/dL (75-99)
--- NOTE | 2019-03-06 12:00 | ECHOF ---
Referral Reason:tn MEASUREMENTS -------- HEIGHT: 157.5 cm WEIGHT: 91.2 kg BP: RVIDd: 2.9 cm (< 3.3) IVSd: 1.2 cm (0.6 - 1.1) LVIDd: 4.4 cm (3.9 - 5.3) LVPWd: 1.4 cm (0.6 - 1.1) IVSs: 1.5 cm LVIDs: 3.8 cm LVPWs: 1.2 cm LA Diam: 3.5 cm (2.7 - 3.8) LAESV Index (A-L): 18.73 ml/m Ao Diam: 2.7 cm (2.0 - 3.7) AV Cusp: 1.5 cm (1.5 - 2.6) LA Diam: 3.1 cm (2.7 - 3.8) MV EXCURSION: 17.354 mm (> 18.000) MV EF SLOPE: 63 mm/s (70 - 150) EPSS: 0.7 cm MV E Eamon: 0.62 m/s MV DecT: 172 ms MV A Eamon: 0.69 m/s MV E/A Ratio: 0.90 RAP: 5.00 mmHg RVSP: 19.65 mmHg FINDINGS -------- Sinus rhythm. This was a technically good study. The left ventricular size is normal. There is borderline concentric left ventricular hypertrophy. Overall left ventricular systolic function is low-normal with, an EF between 50 - 55 %. The right ventricle is normal in size. The left atrial size is normal. Normal LA size by volume 22+/-6 ml/m2. The right atrial size is normal. The aortic valve is trileaflet, and appears structurally normal. No aortic stenosis or regurgitation. Mild mitral regurgitation is present. Mild tricuspid regurgitation present. There is no evidence of pulmonary hypertension. The right v entricular systolic pressure, as measured by Doppler, is 19.65mmHg. There is no pulmonic regurgitation present. The aortic root size is normal. There is no pericardial effusion. CONCLUSIONS -------- 1. Sinus rhythm. 2. This was a technically good study. 3. The left ventricular size is normal. 4. There is borderline concentric left ventricular hypertrophy. 5. Overall left ventricular systolic function is low-normal with, an EF between 50 - 55 %. 6. The right ventricle is normal in size. 7. The left atrial size is normal. 8. Normal LA size by volume 22+/-6 ml/m2. 9. The right atrial size is normal. 10. The aortic valve is trileaflet, and appears structurally normal. No aortic stenosis or regurgitat ion. 11. Mild mitral regurgitation is present. 12. Mild tricuspid regurgitation present. 13. There is no evidence of pulmonary hypertension. 14. The right ventricular systolic pressure, as measured by Doppler, is 19.65mmHg. 15. There is no pulmonic regurgitation present. 16. The aortic root size is normal. 17. There is no pericardial effusion. BRIDGE CARPENTER: Marilee Shaw RDCS
--- NOTE | 2019-03-06 12:04 | P.PN ---
Subjective Progress Note Date: 03/06/19 Principal diagnosis: Vertigo MRI Brain. Carotid duplex. Plan for cardiac catheterization later today for NSTEMI. Dizziness better with scopolamine patch. No other neuro c/o. Objective - Vital Signs Vital signs: Vital Signs Temp 97.1 F L 03/06/19 09:00 Pulse 56 L 03/06/19 09:42 Resp 18 03/06/19 09:42 BP 130/60 03/06/19 09:00 Pulse Ox 95 03/06/19 09:00 Intake & Output 03/05/19 03/06/19 03/06/19 18:59 06:59 18:59 Intake Total 240 Balance 240 Weight 90.718 kg 91.3 kg Intake: Oral 240 Other: Voiding Method Toilet # Voids 3 1 - Exam Gen NAD Pleasant and cooperative MS A+Ox4 Normal fluency Able to follow all commands CN PERRL VFF no APD EOMI right lateral nystagmus that habituates within 10 seconds negative skew did not perform head impulse as she is nauseated No RUDDY No facial asymmetry Masseter's symmetric Hearing diminished to normal voice bilaterally Speech not dysarthric Equal elevation of palate Tongue midline Sym shrug and SCM bilaterally Motor Normal bulk/tone No pronator drift or tremors Strength 5/5 sym throughout Sens Intact to LT x4 No neglect Coord No dysmetria on FTN bilaterally DTRs 2+/4 sym throughout Toes downgoing bilaterally No clonus at achilles Gait Deferred NIHSS 0 - Labs CBC & Chem 7: 03/05/19 12:25 03/05/19 12:25 Labs: Abnormal Lab Results - Last 24 Hours (Table) 03/05/19 03/05/19 03/05/19 Range/Units 03:49 12:25 12:25 Plt Count 121 L (150-450) k/uL BUN 25 H (7-17) mg/dL Glucose 270 H (74-99) mg/dL POC Glucose (mg/dL) (75-99) mg/dL Troponin I (0.000-0.034) ng/mL Triglycerides 161 H (<150) mg/dL HDL Cholesterol 39 L (40-60) mg/dL Urine Glucose (UA) (Negative) Ur Leukocyte Esterase (Negative) Urine Mucus (None) /hpf 03/05/19 03/05/19 03/05/19 Range/Units 12:25 12:25 18:22 Plt Count (150-450) k/uL BUN (7-17) mg/dL Glucose (74-99) mg/dL POC Glucose (mg/dL) (75-99) mg/dL Troponin I 0.147 H* 0.139 H* (0.000-0.034) ng/mL Triglycerides (<150) mg/dL HDL Cholesterol (40-60) mg/dL Urine Glucose (UA) 4+ H (Negative) Ur Leukocyte Esterase Trace H (Negative) Urine Mucus Rare H (None) /hpf 03/05/19 03/06/19 03/06/19 Range/Units 20:17 00:07 06:17 Plt Count (150-450) k/uL BUN (7-17) mg/dL Glucose (74-99) mg/dL POC Glucose (mg/dL) 188 H 173 H (75-99) mg/dL Troponin I 0.115 H* (0.000-0.034) ng/mL Triglycerides (<150) mg/dL HDL Cholesterol (40-60) mg/dL Urine Glucose (UA) (Negative) Ur Leukocyte Esterase (Negative) Urine Mucus (None) /hpf - Imaging and Cardiology MRI Brain and IAC w wo jr 03/06/19. Possible mild left-sided inferior mastoiditis and mild acute inferior right maxillary sinusitis. There is no area of restricted diffusion to suggest acute intracranial ischemia. She does have mild subcortical vascular burden. The vestibulocochlear complexes are symmetric and felt within normal limits. No cerebellopontine angle mass identified. There is no intracranial hemorrhage. No other acute intracranial abnormalities are seen. Carotid duplex 03/06/19. 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 I have reviewed neuroimages myself. Assessment and Plan Assessment: Acute onset of vertigo, peripheral. 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 May cut in 1/2 if blurred vision or mouth too dry -ASA and statin, but in this case, primarily for cardiac reasons as she did not rule in for an acute CVA; however, the same treatment would apply for her medical management of BALA stenosis that should be followed up as outpatient -BP parameters per cardiology -PT when able -DVT prophylaxis -d/w patient in detail. All questions answered -No further inpatient neuro recs at this time. Will revisit patient prn. Please call with new ?. Thank you again for this consultation. Time with Patient: Less than 30 (Time spent in direct patient care, greater than 50% of which was spent in [id number] counseling and coordination of care: 25 minutes)
[2019-03-06] MEDS ORDERED: LIDOCAINE 1% INJ 10MG/ML (20 ML MDV) ONE (13:00)
[2019-03-06] MEDS ORDERED: fentaNYL (PF) 50 MCG/ML 2 ML AMP ONE (13:06)
[2019-03-06] MEDS ORDERED: IV FLUID CONTINUATION 900 ML IV ONE (13:18)
[2019-03-06] MEDS ORDERED: VERAPAMIL 2.5 MG/ML 2 ML AMP ONE (13:20)
[2019-03-06] MEDS ORDERED: LIDOCAINE 1% INJ 10MG/ML (20 ML MDV) SQ ONE (13:52)
[2019-03-06] MEDS ORDERED: fentaNYL (PF) 50 MCG/ML 2 ML AMP IV ONE (13:52)
[2019-03-06] MEDS ORDERED: VERAPAMIL SYRINGE (5 MG/10 ML) INTRAARTER ONE (13:54)
[2019-03-06] MEDS ORDERED: HEPARIN SODIUM 1,000 UN/ML (10ML VL) ONE (14:00)
[2019-03-06] MEDS ORDERED: HEPARIN SODIUM 1,000 UN/ML (10ML VL) IV ONE (14:01)
[2019-03-06] MEDS ORDERED: IOPAMIDOL-370 100ML BTL INJ ONE (14:08)
--- NOTE | 2019-03-06 14:14 | CONS ---
CONSULTATION Mrs. Carnes is a 69-year-old female with known history of diabetes, hypertension, hyperlipidemia, who presented with symptoms of dizziness. The dizziness has been going on for the last few days, worse in certain position of the head. She has also been complaining of some chest discomfort. The dizziness is associated with nausea, but no palpitation. The discomfort in the chest lasted for about 10 minutes and is not activity related. She has no prior cardiac history, but she is not very active physically. She has no clear dyspnea on exertion. No PND. No orthopnea. No peripheral edema. She has no recent cardiac workup. Her coronary risk factors are positive for hypertension, hyperlipidemia, and diabetes. She is a nonsmoker. MEDICATIONS: Include benazepril 10 mg daily, vitamin D, gabapentin 600 mg twice a day, insulin, omeprazole 20 mg daily, Prandin 3 mg 3 times a day, rosuvastatin 5 mg q.48 hours, Zanaflex, Requip, hydroxyzine and Zoloft. REVIEW OF SYSTEMS: RESPIRATORY SYSTEM: She has no recent wheezing or cough. No history of documented obstructive lung disease. GI SYSTEM: No recent GI bleeding. No peptic ulcer disease. She feels nauseated with the dizziness. SYSTEM: No dysuria or hematuria. NERVOUS SYSTEM: No prior history of stroke or seizure. PHYSICAL EXAMINATION: A 69-year-old female, alert, oriented, in no apparent distress. Blood pressure 130/60 with a heart rate in the 50s. HEAD: Normocephalic. EYES Sclerae nonicteric. NECK: Good upstroke, no bruit, no venous distention. LUNGS: Clear to auscultation. HEART: Regular rate and rhythm, S1, S2. No S3. No S4. No murmur appreciated. ABDOMEN: Soft, nontender, positive bowel sounds, no organomegaly. EXTREMITIES: No edema. LAB DATA: Troponin 0.147, 0.139 and 0.115. BUN and creatinine of 25 and 0.75. Potassium 4.4, hemoglobin 14.4. EKG revealed a sinus mechanism, rate of 71, normal axis and intervals with minor nonspecific ST-T wave changes. Chest x-ray shows no acute infiltrate. CT scan of the chest shows no acute abnormality. IMPRESSION: 1. Dizziness, suggestive of vertigo. Workup in progress. Patient has been seen by the Neurology Service. 2. Symptoms of chest discomfort with abnormal troponin in a patient with multiple risk factors. Possibility of non-STEMI cannot be excluded. 3. History of hypertension. 4. Hyperlipidemia. 5. Diabetes mellitus. RECOMMENDATION: I will obtain echocardiogram with Doppler. I will also recommend to proceed with coronary angiography to assess her status and guide her treatment. The rationale behind the procedures, risks and complication were discussed with the patient who is in full understanding and agreement. Thank you for this consult. Will follow with you. MMODL / IJN: [id number] /
[2019-03-06] MEDS ORDERED: RX INFO: IV CONTRAST WAS GIVEN 1 EACH MISC MISCELLANE PRN (14:21)
[2019-03-06] MEDS ORDERED: SODIUM CHLORIDE 0.9% 1,000 ML IV SCH (14:30)
[2019-03-06 17:31] LABS: Glucose,Whole Blood 129 mg/dL (75-99)
[2019-03-06 20:40] LABS: Glucose,Whole Blood 220 mg/dL (75-99)
[2019-03-06] MEDS: hydrOXYzine HCL 10 MG TAB PO SCH (20:42)
[2019-03-06] MEDS: CEPHALEXIN 500 MG CAP PO SCH (20:49)
--- NOTE | 2019-03-06 21:13 | P.HPIM ---
History of Present Illness H&P Date: 03/06/19 Chief Complaint: vertigo Anupama Carnes is a 69 yo F with PMH significant for T2DM, HTN, HLD and strong family history of CAD. Pt presented to the ED on the recommendation of her PCP after being seen in clinic for 3 day history of sudden onsent vertigo and discomfort at the base of her skull. She states she woke up Sunday and felt dizzy and like she was being pulled to the right. She denies any previous history of these symptoms. When her symptoms hadn't resolved by Sunday she saw her PCP. At that time she also complained of intermittent pain radiating up her neck and jaw. She also notes shortness of breath with exertion and occasional chest tightness/pressure with exercise. She also endorses tinnitus and balance issues, states she is clumsy and has fallen at home last week. In the ED vitals stable, labs unremarkable with exception of troponin 0.15. CT head unremarkable. Currently, she continues to endorse dizziness and denies chest or jaw pain. Review of Systems All systems: negative Constitutional: Denies chills, Denies fever Eyes: denies blurred vision, denies pain Ears, nose, mouth and throat: Denies headache, Denies sore throat Cardiovascular: Reports chest pain, Reports dyspnea on exertion, Denies shortness of breath Respiratory: Denies cough Gastrointestinal: Denies abdominal pain, Denies diarrhea, Denies nausea, Denies vomiting Genitourinary: Denies dysuria, Denies hematuria Musculoskeletal: Denies myalgias Integumentary: Denies pruritus, Denies rash Neurological: Reports lack of coordination, Reports vertigo, Denies numbness, Denies weakness Psychiatric: Denies anxiety, Denies depression Endocrine: Denies fatigue, Denies weight change Past Medical History Past Medical History: Diabetes Mellitus, GERD/Reflux, Hyperlipidemia, Hypertension, Osteoarthritis (OA), Rheumatoid Arthritis (RA) Additional Past Medical History / Comment(s): deteriorating disks History of Any Multi-Drug Resistant Organisms: None Reported Past Surgical History: Breast Surgery, Section, Hysterectomy, Joint Replacement, Tonsillectomy, Tubal Ligation Additional Past Surgical History / Comment(s): brendan knee replacements, brendan cataracts, breast reduction, Lumbar cage inserted. Past Anesthesia/Blood Transfusion Reactions: No Reported Reaction Past Psychological History: Depression Smoking Status: Never smoker Past Alcohol Use History: Rare Past Drug Use History: None Reported - Past Family History Mother Family Medical History: Cancer Additional Family Medical History / Comment(s): Breast Medications and Allergies Home Medications Medication Instructions Recorded Confirmed Type Benazepril [Lotensin] 10 mg PO DAILY 05/28/14 03/05/19 History Gabapentin [Neurontin] 600 mg PO BID 05/28/14 03/05/19 History Rosuvastatin Calcium [Crestor] 5 mg PO Q48H 05/28/14 03/05/19 History Sertraline HCl [Zoloft] 100 mg PO DAILY 05/28/14 03/05/19 History INSULIN LISPRO (HumaLOG) [HumaLOG] 60 unit SQ BID 04/03/17 03/05/19 History Cyanocobalamin (Vitamin B-12) 1,000 mcg PO DAILY 03/05/19 03/05/19 History [Vitamin B-12] EPINEPHrine (Auto Inject) [Epipen] 0.3 mg IM ONCE PRN 03/05/19 03/05/19 History Ergocalciferol (Vitamin D2) 50,000 unit PO Q7D 03/05/19 03/05/19 History [Vitamin D2] Omeprazole [PriLOSEC] 20 mg PO DAILY 03/05/19 03/05/19 History Repaglinide [Prandin] 3 mg PO TID 03/05/19 03/05/19 History hydrOXYzine HCL 10 mg PO HS 03/05/19 03/05/19 History rOPINIRole HCL [Requip] 1 mg PO BID 03/05/19 03/05/19 History tiZANidine [Zanaflex] 2 mg PO BID PRN 03/05/19 03/05/19 History Allergies Allergy/AdvReac Type Severity Reaction Status Date / Time propoxyphene HCl Allergy Severe Hallucinati Verified 03/05/19 12:09 [From Harry] ons clindamycin Allergy Rash/Hives Verified 03/05/19 12:09 Sulfa (Sulfonamide Allergy Swelling Verified 03/05/19 12:09 Antibiotics) Physical Exam Vitals: Vital Signs Temp Pulse Pulse Resp BP BP Pulse Ox 03/06/19 09:42 56 L 18 03/06/19 09:00 97.1 F L 56 L 18 130/60 95 03/06/19 08:00 98.2 F 55 L 16 130/60 95 03/06/19 04:45 97.9 F 62 16 138/72 95 03/05/19 23:15 98.5 F 68 16 130/71 96 03/05/19 20:00 98.5 F 80 16 155/71 95 03/05/19 18:18 98.4 F 71 20 164/84 03/05/19 17:00 98.0 F 72 18 125/74 97 03/05/19 15:20 97.9 F 70 18 127/72 96 03/05/19 13:59 75 18 145/87 97 03/05/19 13:18 18 Intake and Output 03/05/19 03/06/19 03/06/19 22:59 06:59 14:59 Intake Total 240 Balance 240 Intake: Oral 240 Other: Voiding Method Toilet # Voids 3 1 Weight 91.3 kg General: well nourished, well developed, resting in NAD. Vitals reviewed Eyes: PERRL, EOMI, conjunctiva normal HENT: normocephalic, mucus membranes moist Neck: supple, no JVD Lungs: normal respiratory effort, no wheezes or rales CV: Regular rate and rhythm, no murmur. Peripheral pulses 2+ Abdomen: soft, nondistended, no organomegaly Lymph: no cervical or axillary LAD Skin: warm and dry. No edema Neuro: A&Ox3, normal mood and affect Results CBC & Chem 7: 03/05/19 12:25 03/05/19 12:25 Labs: Abnormal Lab Results - Last 24 Hours (Table) 03/05/19 03/05/19 03/05/19 Range/Units 03:49 12:25 12:25 Plt Count 121 L (150-450) k/uL BUN 25 H (7-17) mg/dL Glucose 270 H (74-99) mg/dL POC Glucose (mg/dL) (75-99) mg/dL Troponin I (0.000-0.034) ng/mL Triglycerides 161 H (<150) mg/dL HDL Cholesterol 39 L (40-60) mg/dL Urine Glucose (UA) (Negative) Ur Leukocyte Esterase (Negative) Urine Mucus (None) /hpf 03/05/19 03/05/19 03/05/19 Range/Units 12:25 12:25 18:22 Plt Count (150-450) k/uL BUN (7-17) mg/dL Glucose (74-99) mg/dL POC Glucose (mg/dL) (75-99) mg/dL Troponin I 0.147 H* 0.139 H* (0.000-0.034) ng/mL Triglycerides (<150) mg/dL HDL Cholesterol (40-60) mg/dL Urine Glucose (UA) 4+ H (Negative) Ur Leukocyte Esterase Trace H (Negative) Urine Mucus Rare H (None) /hpf 03/05/19 03/06/19 03/06/19 Range/Units 20:17 00:07 06:17 Plt Count (150-450) k/uL BUN (7-17) mg/dL Glucose (74-99) mg/dL POC Glucose (mg/dL) 188 H 173 H (75-99) mg/dL Troponin I 0.115 H* (0.000-0.034) ng/mL Triglycerides (<150) mg/dL HDL Cholesterol (40-60) mg/dL Urine Glucose (UA) (Negative) Ur Leukocyte Esterase (Negative) Urine Mucus (None) /hpf Thrombosis Risk Factor Assmnt - Choose All That Apply Any of the Below Risk Factors Present?: No Other Risk Factors: Yes Each Risk Factor Represents 2 Points: Age 61-74 years Thrombosis Risk Factor Assessment Total Risk Factor Score: 2 Thrombosis Risk Factor Assessment Level: Low Risk Assessment and Plan (1) Dizziness Current Visit: Yes Status: Acute Code(s): R42 - DIZZINESS AND GIDDINESS SNOMED Code(s): 520612582 (2) NSTEMI (non-ST elevated myocardial infarction) Current Visit: Yes Status: Acute Code(s): I21.4 - NON-ST ELEVATION (NSTEMI) MYOCARDIAL INFARCTION SNOMED Code(s): 40533223 (3) HTN (hypertension) Current Visit: No Status: Acute Code(s): I10 - ESSENTIAL (PRIMARY) HYPERTENSION SNOMED Code(s): 56718253 (4) Hyperlipidemia Current Visit: No Status: Acute Code(s): E78.5 - HYPERLIPIDEMIA, UNSPECIFIED SNOMED Code(s): 37797093 (5) Non-insulin dependent type 2 diabetes mellitus Current Visit: No Status: Acute Code(s): E11.9 - TYPE 2 DIABETES MELLITUS WITHOUT COMPLICATIONS SNOMED Code(s): 28037102 (6) Acute cystitis Current Visit: Yes Status: Acute Code(s): N30.00 - ACUTE CYSTITIS WITHOUT HEMATURIA SNOMED Code(s): 13109592 Plan: 1. Dizziness. Suspect vertigo. Neurology consulted for further eval. Scopolamine patch. Continue ASA and statin 2. Elevated troponin. NSTEMI vs demand ischemia. Cardiology consulted. Continue lisinopril, metoprolol 3. Acute cystitis. Keflex bid 4. T2DM. Accucheck and sliding scale. Continue gabapentin 5. HTN
--- NOTE | 2019-03-06 22:05 | CC ---
CARDIAC CATHETERIZATION REPORT Mrs. Carnes is a 69-year-old female with known history of hypertension, hyperlipidemia, diabetes mellitus, who presented with symptoms of dizziness and mild chest discomfort. She had mild troponin elevation but no significant EKG changes. In view of that, recommendation was made regarding cardiac catheterization. The procedure, its risks and complications were discussed with the patient, who was in full understanding and agreement. PROCEDURE: Patient was brought to the orthodontic laboratory technician in a fasting, semi-sedated state after receiving fentanyl and Benadryl and achieving a moderate conscious sedated state. Using Xylocaine anesthesia and Seldinger technique, a 6-Serbian sheath was introduced in the right radial artery. Selective right and left coronary angiography was performed using 5-Serbian 3-1/2 bend right and left Pati catheters. Multiple views were taken of the arteries, including hemiaxial views. Following that, a 5-Serbian tight pigtail catheter was introduced into the left ventricle and a 30-degree DRAKE view of the left ventricle was obtained. At the end procedure, catheter and sheath were removed. Hemostasis was obtained with deployment of a TR band. There was no immediate complication. Patient was returned to her room in stable condition. Of note, the patient received 5000 units of intravenous heparin as well as intra-arterial verapamil. FINDINGS: FLUOROSCOPY: There was mild calcification involving the right coronary artery as well as the left anterior descending artery. LEFT MAIN: This is a large-sized vessel, short in distance, bifurcating into LAD and left circumflex. Left main coronary artery has no evidence of high-grade stenosis. LEFT ANTERIOR DESCENDING ARTERY: This is a large-sized vessel reaching toward the apex with a wrap around the apex segment. The left anterior descending artery gives rise to a large diagonal branch proximally. The left anterior descending artery as well as its branches have no evidence of obstructive coronary artery disease. LEFT CIRCUMFLEX: This is a nondominant vessel giving rise to one obtuse marginal branch of moderate caliber. The left circumflex as well as its branches have no evidence of obstructive coronary artery disease. RIGHT CORONARY ARTERY: This is a large dominant vessel bifurcating distally into PDA and posterolateral segment and branches. The right coronary artery in the proximal segment has a calcified segment with 20% to 30% plaque. The rest of the vessel has no high-grade stenosis. LEFT VENTRICULOGRAM: Left ventriculogram was performed in the 30-degree DRAKE view and revealed normal left ventricular size and systolic function. Ejection fraction is 55%. There was no significant mitral regurgitation. HEMODYNAMICS: There was no gradient across the aortic valve. The left ventricular end-diastolic pressure was 20 to 24 mmHg. CONCLUSION: 1. Mild disease in the proximal right coronary artery in a calcified segment. 2. Normal left ventricular size and systolic function. RECOMMENDATIONS: In view of findings and anatomy, I have recommended continued medical therapy with the aggressive coronary risk modifications that have been initiated. Those findings and recommendations were discussed with the patient and her family, who are in full understanding and agreement. Duration of procedure was 19 minutes. MMOZZY / AMANDAN: [id number] /
[2019-03-07 05:53] LABS: Glucose,Whole Blood 213 mg/dL (75-99)
[2019-03-07 06:15] VITALS: PULSE 58
[2019-03-07] MEDS: INSULIN ASPART (NovoLOG) 100 UNIT/ML VIAL SQ SCH ×2 (06:32→12:20)
[2019-03-07 07:15] LABS: Potassium 4.4 mmol/L (3.5-5.1)
[2019-03-07] MEDS: LISINOPRIL 10 MG TAB PO SCH (08:33)
[2019-03-07] MEDS: SERTRALINE 100 MG TAB PO SCH (08:33)
[2019-03-07] MEDS: CEPHALEXIN 500 MG CAP PO SCH (08:33)
[2019-03-07] MEDS: CYANOCOBALAMIN 500 MCG TAB PO SCH (08:37)
[2019-03-07] MEDS: GABAPENTIN 300 MG CAP PO SCH (08:38)
[2019-03-07] MEDS: PANTOPRAZOLE 40 MG TABLET PO SCH (08:38)
[2019-03-07] MEDS: METOPROLOL TARTRATE 25 MG TAB PO SCH (08:54)
[2019-03-07] MEDS ORDERED: ASPIRIN 325 MG TAB PO SCH (09:00)
[2019-03-07] MEDS ORDERED: ASPIRIN 81 MG PO SCH (09:00)
[2019-03-07] MEDS ORDERED: ATORVASTATIN 80 MG TAB PO SCH (09:00)
[2019-03-07] MEDS ORDERED: METOPROLOL TARTRATE 12.5 MG TAB PO SCH (09:15)
[2019-03-07 09:33] VITALS: BP 127/67; RESP 18; TEMP 98.2
--- NOTE | 2019-03-07 11:29 | P.DS ---
Providers Date of admission: 03/05/19 13:55 Expected date of discharge: 03/07/19 Attending physician: Lebron Tristan MD Consults: 03/05/19 13:55 Consult Physician Routine Consulting Provider: Bhavana Novak Consult Reason/Comments: diziness Do you want consulting provider notified?: Yes Consult Physician Urgent Consulting Provider: Roc Gann Consult Reason/Comments: nstemi Do you want consulting provider notified?: Yes Primary care physician: Cora Terry - Discharge Diagnosis(es) (1) Dizziness Current Visit: Yes Status: Acute (2) NSTEMI (non-ST elevated myocardial infarction) Current Visit: Yes Status: Acute (3) HTN (hypertension) Current Visit: No Status: Acute (4) Hyperlipidemia Current Visit: No Status: Acute (5) Non-insulin dependent type 2 diabetes mellitus Current Visit: No Status: Acute (6) Acute cystitis Current Visit: Yes Status: Acute Hospital Course: Anupama Carnes is a 69 yo F with PMH significant for T2DM, HTN, HLD and strong family history of CAD. Pt presented to the ED on the recommendation of her PCP after being seen in clinic for 3 day history of sudden onsent vertigo and discomfort at the base of her skull. She states she woke up Sunday and felt dizzy and like she was being pulled to the right. She denies any previous history of these symptoms. When her symptoms hadn't resolved by Sunday she saw her PCP. At that time she also complained of intermittent pain radiating up her neck and jaw. She also notes shortness of breath with exertion and occasional chest tightness/pressure with exercise. She also endorses tinnitus and balance issues, states she is clumsy and has fallen at home last week. In the ED vitals stable, labs unremarkable with exception of troponin 0.15. CT head unremarkable. Currently, she continues to endorse dizziness and denies chest or jaw pain. Pt was admitted to medicine with cardiology and neurology consults. She underwent MRI brain which showed only some mild sinusitis and otherwise unremarkable. Vertigo controlled with scopolamine patch. Pt's troponin was trended and peaked at 0.147. She underwent coronary catheterization which did not reveal any critical lesions. She was switched to 80 lipitor qhs. Pt's urine culture did grow aerococcus and pt was treated with keflex. On day of discharge she denies chest pain, dizziness or dysuria. She is discharged in stable condition and recommended to follow up with PCP next week. Discharge exam General: well nourished, well developed, resting in NAD. Vitals reviewed Eyes: PERRL, EOMI, conjunctiva normal HENT: normocephalic, mucus membranes moist Neck: supple, no JVD Lungs: normal respiratory effort, no wheezes or rales CV: Regular rate and rhythm, no murmur. Peripheral pulses 2+ Abdomen: soft, nondistended, no organomegaly Lymph: no cervical or axillary LAD Skin: warm and dry. No edema Neuro: A&Ox3, normal mood and affect Patient Condition at Discharge: Fair Plan - Discharge Summary New Discharge Prescriptions: New Cephalexin [Keflex] 500 mg PO BID #12 cap Atorvastatin [Lipitor] 80 mg PO DAILY #30 tab Metoprolol Tartrate [Lopressor] 12.5 mg PO BID #60 tab Meclizine [Antivert] 25 mg PO BID PRN #20 tab PRN Reason: Vertigo Continue Sertraline HCl [Zoloft] 100 mg PO DAILY Rosuvastatin Calcium [Crestor] 5 mg PO Q48H Gabapentin [Neurontin] 600 mg PO BID Benazepril [Lotensin] 10 mg PO DAILY INSULIN LISPRO (HumaLOG) [humaLOG] 60 unit SQ BID Omeprazole [PriLOSEC] 20 mg PO DAILY Ergocalciferol (Vitamin D2) [Vitamin D2] 50,000 unit PO Q7D Cyanocobalamin (Vitamin B-12) [Vitamin B-12] 1,000 mcg PO DAILY Repaglinide [Prandin] 3 mg PO TID rOPINIRole HCL [Requip] 1 mg PO BID hydrOXYzine HCL 10 mg PO HS EPINEPHrine (Auto Inject) [Epipen] 0.3 mg IM ONCE PRN PRN Reason: Anaphylaxis tiZANidine [Zanaflex] 2 mg PO BID PRN PRN Reason: Muscle Spasm Discharge Medication List Benazepril [Lotensin] 10 mg PO DAILY 05/28/14 [History] Gabapentin [Neurontin] 600 mg PO BID 05/28/14 [History] Rosuvastatin Calcium [Crestor] 5 mg PO Q48H 05/28/14 [History] Sertraline HCl [Zoloft] 100 mg PO DAILY 05/28/14 [History] INSULIN LISPRO (HumaLOG) [humaLOG] 60 unit SQ BID 04/03/17 [History] Cyanocobalamin (Vitamin B-12) [Vitamin B-12] 1,000 mcg PO DAILY 03/05/19 [History] EPINEPHrine (Auto Inject) [Epipen] 0.3 mg IM ONCE PRN 03/05/19 [History] Ergocalciferol (Vitamin D2) [Vitamin D2] 50,000 unit PO Q7D 03/05/19 [History] Omeprazole [PriLOSEC] 20 mg PO DAILY 03/05/19 [History] Repaglinide [Prandin] 3 mg PO TID 03/05/19 [History] hydrOXYzine HCL 10 mg PO HS 03/05/19 [History] rOPINIRole HCL [Requip] 1 mg PO BID 03/05/19 [History] tiZANidine [Zanaflex] 2 mg PO BID PRN 03/05/19 [History] Atorvastatin [Lipitor] 80 mg PO DAILY #30 tab 03/07/19 [Rx] Cephalexin [Keflex] 500 mg PO BID #12 cap 03/07/19 [Rx] Meclizine [Antivert] 25 mg PO BID PRN #20 tab 03/07/19 [Rx] Metoprolol Tartrate [Lopressor] 12.5 mg PO BID #60 tab 03/07/19 [Rx] Follow up Appointment(s)/Referral(s): Cora Terry DO [Primary Care Provider] - 1-2 days Patient Instructions/Handouts: Heart Attack (DC), Vertigo (ED), Dizziness (ED) Discharge Disposition: HOME SELF-CARE
[2019-03-07 12:00] LABS: Glucose,Whole Blood 228 mg/dL (75-99)
== END 2019-03-07 13:06 | disposition home or self-care (01) | DRG 281 ==
LOC: EC 11:36 → 3SCARD 13:55
PROVIDERS: ADMIT Family Medicine; ATTEND Family Medicine
PROC: B2111ZZ Fluoroscopy of Multiple Coronary Arteries using Low Osmolar Contrast (ICD-10-PCS; 2019-03-06)
PROC: B2151ZZ Fluoroscopy of Left Heart using Low Osmolar Contrast (ICD-10-PCS; 2019-03-06)
PROC: 4A023N7 Measurement of Cardiac Sampling and Pressure, Left Heart, Percutaneous Approach (ICD-10-PCS; principal; 2019-03-06 13:00)
DX: I21.4 Non-ST elevation (NSTEMI) myocardial infarction (principal); N30.01 Acute cystitis with hematuria; E11.9 Type 2 diabetes mellitus without complications; E78.5 Hyperlipidemia, unspecified; F32.9 Major depressive disorder, single episode, unspecified; H91.93 Unspecified hearing loss, bilateral; H93.19 Tinnitus, unspecified ear; I10 Essential (primary) hypertension; K21.9 Gastro-esophageal reflux disease without esophagitis; M06.9 Rheumatoid arthritis, unspecified; Z91.81 History of falling; Z79.4 Long term (current) use of insulin; Z79.899 Other long term (current) drug therapy; Z82.49 Family history of ischemic heart disease and other diseases of the circulatory system; Z80.3 Family history of malignant neoplasm of breast; Z90.710 Acquired absence of both cervix and uterus; Z96.653 Presence of artificial knee joint, bilateral; Z97.4 Presence of external hearing-aid; Z98.42 Cataract extraction status, left eye; Z98.41 Cataract extraction status, right eye; R42 Dizziness and giddiness
CPT/HCPCS: 36415; 70450; 70553; 71046; 80048; 80053; 80061; 81001; 82550; 83735; 84100; 84484; 85025; 85610; 85730; 87086; 93005; 93306; 93458; 93880; 96360; 96361; 99291

== ENCOUNTER 2020-12-10 07:00 | Emergency (ER) | payer MEDICARE, BC ==
[2020-12-10 07:09] VITALS: TEMP 98.3
--- NOTE | 2020-12-10 07:55 | ED ---
General Adult HPI - General Chief complaint: Back Pain/Injury Stated complaint: Back Pain Time Seen by Provider: 12/10/20 07:00 Source: patient, police, EMS, RN notes reviewed, old records reviewed Mode of arrival: EMS Limitations: no limitations - History of Present Illness Initial comments: This is a 70-year-old female presents emergency Department complaining of right- sided back and flank pain and a little right upper quadrant abdominal pain. Patient states it started yesterday it was so bad that she couldn't sleep last night. Patient states that she is always a little nauseated and that is now worse today. Patient states not worse today. Patient denies any diarrhea. Patient denies any chest pain difficulty breathing shortest breath. Patient has any fever chills or cough. Patient denies any radiation of the pain down her leg. Patient denies any numbness weakness per patient denies any urinary retention or incontinence. Patient states she's had back problems before and had surgery and had a cage put in her lumbar region. - Related Data Home Medications Medication Instructions Recorded Confirmed Benazepril [Lotensin] 10 mg PO DAILY 05/28/14 12/10/20 Gabapentin [Neurontin] 600 mg PO BID 05/28/14 12/10/20 Rosuvastatin Calcium [Crestor] 10 mg PO Q48H 05/28/14 12/10/20 Sertraline HCl [Zoloft] 100 mg PO DAILY 05/28/14 12/10/20 Cyanocobalamin (Vitamin B-12) 1,000 mcg PO DAILY 03/05/19 12/10/20 [Vitamin B-12] EPINEPHrine (Auto Inject) [Epipen] 0.3 mg IM ONCE PRN 03/05/19 12/10/20 Omeprazole [PriLOSEC] 20 mg PO DAILY 03/05/19 12/10/20 hydrOXYzine HCL 10 mg PO HS 03/05/19 12/10/20 rOPINIRole HCL [Requip] 1 mg PO BID 03/05/19 12/10/20 tiZANidine [Zanaflex] 2 mg PO BID PRN 03/05/19 12/10/20 Brimonidine Tartrate [Alphagan P 1 drop BOTH EYES BID 12/10/20 12/10/20 0.2% Ophth Soln] Cholecalciferol [Vitamin D3 (25 50 mcg PO DAILY 12/10/20 12/10/20 Mcg = 1000 Iu)] Ibuprofen [Motrin Ib] 800 mg PO ONCE PRN 12/10/20 12/10/20 Insulin NPL/Insulin Lispro 70 unit SQ BID 12/10/20 12/10/20 [humaLOG MIX 75-25 VIAL] Meclizine [Antivert] 25 mg PO TID PRN 12/10/20 12/10/20 Ozempic (Unknown Strength) 1 dose INJ SADLER 12/10/20 12/10/20 Previous Rx's Medication Instructions Recorded Ketorolac [Toradol] 10 mg PO Q6HR #15 tab 12/10/20 Nitrofurantoin Monohyd/M-Cryst 100 mg PO Q12HR #14 cap 12/10/20 [Macrobid] Allergies Allergy/AdvReac Type Severity Reaction Status Date / Time propoxyphene HCl Allergy Severe Hallucinati Verified 12/10/20 09:28 [From Darvon] ons clindamycin Allergy Rash/Hives Verified 12/10/20 09:28 Sulfa (Sulfonamide Allergy Swelling Verified 12/10/20 09:28 Antibiotics) Review of Systems ROS Statement: Those systems with pertinent positive or pertinent negative responses have been documented in the HPI. ROS Other: All systems not noted in ROS Statement are negative. Past Medical History Past Medical History: Diabetes Mellitus, GERD/Reflux, Hyperlipidemia, Hypertension, Osteoarthritis (OA), Rheumatoid Arthritis (RA) Additional Past Medical History / Comment(s): deteriorating disks, glaucoma History of Any Multi-Drug Resistant Organisms: None Reported Past Surgical History: Breast Surgery, Section, Hysterectomy, Joint Replacement, Tonsillectomy, Tubal Ligation Additional Past Surgical History / Comment(s): brendan knee replacements, brendan cataracts, breast reduction, Lumbar cage inserted. Past Anesthesia/Blood Transfusion Reactions: No Reported Reaction Past Psychological History: Depression Smoking Status: Never smoker Past Alcohol Use History: Rare Past Drug Use History: None Reported - Past Family History Mother Family Medical History: Cancer Additional Family Medical History / Comment(s): Breast General Exam - General Exam Comments Initial Comments: GENERAL: Patient is well-developed and well-nourished. Patient is nontoxic and well-hy drated and is in mild distress. ENT: Neck is soft and supple. No significant lymphadenopathy is noted. Oropharynx is clear. Moist mucous membranes. Neck has full range of motion without eliciting any pain. EYES: The sclera were anicteric and conjunctiva were pink and moist. Extraocular movements were intact and pupils were equal round and reactive to light. Eyelids were unremarkable. PULMONARY: Unlabored respirations. Good breath sounds bilaterally. No audible rales rhonchi or wheezing was noted. CARDIOVASCULAR: There is a regular rate and rhythm without any murmurs gallops or rubs. ABDOMEN: Patient has some right upper quadrant abdominal tenderness as well as some tenderness to palpation in the CVA area. SKIN: Skin is clear with no lesions or rashes and otherwise unremarkable. NEUROLOGIC: Patient is alert and oriented x3. Cranial nerves II through XII are grossly intact. Motor and sensory are also intact. Normal speech, volume and content. Symmetrical smile. MUSCULOSKELETAL: Normal extremities with adequate strength and full range of motion. No lower extremity swelling or edema. No calf tenderness. LYMPHATICS: No significant lymphadenopathy is noted PSYCHIATRIC: Normal psychiatric evaluation. Limitations: no limitations Course Vital Signs 12/10/20 12/10/20 07:02 10:00 Temperature 98.3 F Pulse Rate 68 68 Respiratory 18 20 Rate Blood Pressure 142/79 147/78 O2 Sat by Pulse 95 94 L Oximetry Medical Decision Making - Medical Decision Making I will begin to reevaluate the patient she was doing considerably better. Patient has some white cells in her urine so I gave her a gram Rocephin and urine will be cultured. - Lab Data Result diagrams: 12/10/20 08:22 12/10/20 08:22 Lab Results 12/10/20 12/10/20 12/10/20 Range/Units 08:22 08:22 08:22 WBC 7.4 (3.8-10.6) k/uL RBC 4.45 (3.80-5.40) m/uL Hgb 13.9 (11.4-16.0) gm/dL Hct 40.1 (34.0-46.0) % MCV 90.1 (80.0-100.0) fL MCH 31.2 (25.0-35.0) pg MCHC 34.7 (31.0-37.0) g/dL RDW 12.9 (11.5-15.5) % Plt Count 106 L (150-450) k/uL MPV 7.7 Neutrophils % 69 % Lymphocytes % 23 % Monocytes % 5 % Eosinophils % 2 % Basophils % 1 % Neutrophils # 5.1 (1.3-7.7) k/uL Lymphocytes # 1.7 (1.0-4.8) k/uL Monocytes # 0.3 (0-1.0) k/uL Eosinophils # 0.2 (0-0.7) k/uL Basophils # 0.0 (0-0.2) k/uL Sodium 139 (137-145) mmol/L Potassium 4.6 (3.5-5.1) mmol/L Chloride 106 (98-107) mmol/L Carbon Dioxide 25 (22-30) mmol/L Anion Gap 8 mmol/L BUN 25 H (7-17) mg/dL Creatinine 0.89 (0.52-1.04) mg/dL Est GFR (CKD-EPI)AfAm 75 (>60 ml/min/1.73 sqM) Est GFR (CKD-EPI)NonAf 65 (>60 ml/min/1.73 sqM) Glucose 204 H (74-99) mg/dL Calcium 9.3 (8.4-10.2) mg/dL Magnesium 1.7 (1.6-2.3) mg/dL Total Bilirubin 0.4 (0.2-1.3) mg/dL AST 38 H (14-36) U/L ALT 18 (4-34) U/L Alkaline Phosphatase 116 (38-126) U/L Total Protein 6.7 (6.3-8.2) g/dL Albumin 4.1 (3.5-5.0) g/dL Lipase 170 (23-300) U/L Urine Color Yellow Urine Appearance Cloudy H (Clear) Urine pH 5.5 (5.0-8.0) Ur Specific [place] 1.034 (1.001-1.035) Urine Protein 1+ H (Negative) Urine Glucose (UA) Trace H (Negative) Urine Ketones Negative (Negative) Urine Blood Negative (Negative) Urine Nitrite Negative (Negative) Urine Bilirubin Negative (Negative) Urine Urobilinogen 2.0 (<2.0) mg/dL Ur Leukocyte Esterase Large H (Negative) Urine RBC 1 (0-5) /hpf Urine WBC 14 H (0-5) /hpf Ur Squamous Epith Cells 7 H (0-4) /hpf Hyaline Casts 34 H (0-2) /lpf Urine Mucus Few H (None) /hpf Disposition Clinical Impression: Lower back pain, Urinary tract infection Disposition: HOME SELF-CARE Instructions (If sedation given, give patient instructions): Urinary Tract Infection in Men (ED), Acute Low Back Pain (ED) Prescriptions: Nitrofurantoin Monohyd/M-Cryst [Macrobid] 100 mg PO Q12HR #14 cap Ketorolac [Toradol] 10 mg PO Q6HR #15 tab Is patient prescribed a controlled substance at d/c from ED?: No Referrals: Cora Terry DO [Primary Care Provider] - 1-2 days Time of Disposition: 10:56
[2020-12-10] MEDS: KETOROLAC 15 MG/ML 1 ML VIAL IVP STA (08:27)
[2020-12-10] MEDS: SODIUM CHLORIDE 0.9% 500 ML 500 ML IV ONE (08:28)
[2020-12-10 08:36] LABS: Basophils % (A) 1 %; Eosinophils # (A) 0.2 k/uL (0-0.7); Eosinophils % (A) 2 %; HCT 40.1 % (34.0-46.0); HGB 13.9 gm/dL (11.4-16.0); Lymphocytes # (A) 1.7 k/uL (1.0-4.8); Lymphocytes % (A) 23 %; MCH 31.2 pg (25.0-35.0); MCHC 34.7 g/dL (31.0-37.0); MCV 90.1 fL (80.0-100.0); Mean Platelet Volume 7.7; Monocytes # (A) 0.3 k/uL (0-1.0); Monocytes % (A) 5 %; Neutrophils # (A) 5.1 k/uL (1.3-7.7); Neutrophils % (A) 69 %; Platelet Count 106 k/uL (150-450); RBC 4.45 m/uL (3.80-5.40); RDW 12.9 % (11.5-15.5); WBC 7.4 k/uL (3.8-10.6)
[2020-12-10 08:45] LABS: Appearance,Urine Cloudy (Clear); Bilirubin,Urine Negative (Negative); Blood,Urine Negative (Negative); Color,Urine Yellow; Glucose,Urine (UA) Trace (Negative); Hyaline Casts,Urine 34 /lpf (0-2); Ketones,Urine Negative (Negative); Leukocyte Esterase,Urine Large (Negative); Mucus,Urine Few /hpf; Nitrite,Urine Negative (Negative); PH, Urine 5.5 (5.0-8.0); Protein,Urine 1+ (Negative); RBC,Urine 1 /hpf (0-5); Specific Gravity,Urine 1.034 (1.001-1.035); Squamous Epithelial Cell,Urine 7 /hpf (0-4); WBC,Urine 14 /hpf (0-5)
[2020-12-10 08:49] LABS: Albumin 4.1 g/dL (3.5-5.0); Calcium 9.3 mg/dL (8.4-10.2); Magnesium 1.7 mg/dL (1.6-2.3); Potassium 4.6 mmol/L (3.5-5.1); Total Bilirubin 0.4 mg/dL (0.2-1.3); Total Protein 6.7 g/dL (6.3-8.2)
--- NOTE | 2020-12-10 09:03 | XR ---
EXAMINATION TYPE: XR lumbosacral spine min 4V DATE OF EXAM: 12/10/2020 CLINICAL HISTORY: Increasing low back pain into buttocks. TECHNIQUE: Frontal, lateral, and oblique images of the lumbar spine are obtained. COMPARISON: Lumbar spine x-ray dated 06/08/2014. FINDINGS: There are 5 lumbar type vertebral bodies redemonstrated. Persistent posterior interpedicul ar rods and screws transfixing L3-L5 levels. Persistent artificial disc material L4-L5 level. Interva l removal of cerclage wires at these levels. Persistent moderate disc space narrowing with vacuum dis c phenomenon and endplate sclerosis L5-S1 level. New Disc calcification with mild to moderate narrowi ng L3-L4 level. New Moderate to severe disc space narrowing with vacuum disc phenomenon and endplate sclerosis along with moderate anterior spurring L2-L3 level. Mild disc space narrowing and vacuum di sc phenomenon at L1-L2 level new from prior. Stable mild to moderate disc space narrowing and spurrin g T12-L1 level. Oblique images remain within normal limits. Stable large left lateral spur L1-L2 leve l. New Large right lateral spur L2-L3 level. Posterior spinous process resection redemonstrated. Ath erosclerotic change of overlying aorta again seen. IMPRESSION: As above.
[2020-12-10 10:07] VITALS: RESP 20
[2020-12-10] MEDS: cefTRIAXone IN SWFI 1,000 MG/10 ML SYRINGE IVP STA (11:28)
[2020-12-10 11:41] VITALS: BP 134/68; PULSE 67
== END 2020-12-10 11:47 | disposition home or self-care (01) ==
LOC: EC 07:00
DX: N39.0 Urinary tract infection, site not specified (principal); M54.5 Low back pain; K21.9 Gastro-esophageal reflux disease without esophagitis; E78.5 Hyperlipidemia, unspecified; I10 Essential (primary) hypertension; M06.9 Rheumatoid arthritis, unspecified; Z79.4 Long term (current) use of insulin; Z96.653 Presence of artificial knee joint, bilateral
CPT/HCPCS: 36415; 80053; 83690; 83735; 85025; 81001; 87086; 72110; 99284; 96374; 96375; 96361; J0696; J1885

== ENCOUNTER → 2021-07-05 | Outpatient (CLI) | payer MEDICARE, BC ==
--- NOTE | 2021-07-05 12:48 | XR ---
EXAMINATION TYPE: XR chest 2V DATE OF EXAM: 07/05/2021 COMPARISON: 03/05/2019 HISTORY: Shortness of breath TECHNIQUE: Frontal and lateral views of the chest are obtained. FINDINGS: Scattered senescent parenchymal changes noted. Hyperinflation compatible with COPD. Chronic elevation right hemidiaphragm. No evidence for infiltrate. No evidence for atelectasis. Heart size is stable. Mediastinal structures are stable and grossly unremarkable. No evidence for hilar prominence. Degenerative changes dorsal spine. IMPRESSION: 1. No evidence for acute pulmonary disease.
[2021-07-05 13:15] LABS: HCT 41.7 % (34.0-46.0); HGB 13.4 gm/dL (11.4-16.0); MCH 30.1 pg (25.0-35.0); MCHC 32.3 g/dL (31.0-37.0); MCV 93.2 fL (80.0-100.0); Mean Platelet Volume 7.8; Platelet Count 128 k/uL (150-450); RBC 4.47 m/uL (3.80-5.40); RDW 12.7 % (11.5-15.5); WBC 7.5 k/uL (3.8-10.6)
[2021-07-05 13:27] LABS: Albumin 4.2 g/dL (3.5-5.0); Calcium 9.1 mg/dL (8.4-10.2); Potassium 4.2 mmol/L (3.5-5.1); Total Bilirubin 0.4 mg/dL (0.2-1.3); Total Protein 7.2 g/dL (6.3-8.2)
[2021-07-05 13:29] LABS: INR 0.9 (<1.2); Partial Thromboplastin Time 23.3 sec (22.0-30.0); Prothrombin Time 10.2 sec (9.0-12.0)
== END | disposition home or self-care (01) ==
LOC: LABPAT 12:13
PROVIDERS: ATTEND Neurological Surgery
DX: S13.1 Subluxation and dislocation of cervical vertebrae (principal); S13.161A Dislocation of C5/C6 cervical vertebrae, initial encounter; M50.00 Cervical disc disorder with myelopathy, unspecified cervical region; M54.12 Radiculopathy, cervical region; I51.7 Cardiomegaly; R06.02 Shortness of breath; R94.31 Abnormal electrocardiogram [ECG] [EKG]; X58.XXXD Exposure to other specified factors, subsequent encounter
CPT/HCPCS: 36415; 71046; 80053; 85027; 85610; 85730; 93005

== ENCOUNTER → 2021-10-21 | Outpatient (CLI) | payer MEDICARE, BC ==
--- NOTE | 2021-10-21 14:07 | MR ---
EXAMINATION TYPE: MR cervical spine wo con DATE OF EXAM: 10/21/2021 COMPARISON: CT cervical spine 12/10/2009 HISTORY: Neck pain x2 years TECHNIQUE: Multiplanar, multisequence images of the cervical spine were acquired without contrast. C2-C3: Moderate degenerative disc disease with slight anterior listhesis similar to the prior CT scan . There is facet arthropathy and uncovertebral joint hypertrophy greater on the left with moderate le ft foraminal encroachment. Minimal central disc bulging but no canal stenosis. C3-C4: Severe degenerative disc disease with discogenic marrow changes. Posterior spondylosis and com plete loss of disc space noted. There is posterior disc protrusion capped by spur and uncovertebral j oint hypertrophy resulting in severe bilateral foraminal encroachment and moderate to severe canal st enosis. There is mild anterior indentation the anterior margin the spinal cord. C4-C5: Complete loss of joint space with a broad-based central disc bulging. Mild bilateral uncoverte bral joint hypertrophy. Neural foramina remain patent. No Canal stenosis. C5-C6: Severe degenerative disc disease with posterior spondylosis. There is facet arthropathy and un covertebral joint hypertrophy with moderate to severe bilateral foraminal encroachment. There is mild compression of the thecal sac and mild central stenosis. C6-C7: Severe degenerative disc disease. There is uncovertebral joint hypertrophy and facet arthropat hy. Vertebral body hemangioma of C7 noted. Mild anterior compression of the thecal sac. Mild bilatera l foraminal encroachment greater on the right. No Canal stenosis. C7-T1: No evidence for degenerative disc disease. No disc bulge/herniation or protrusion. No Canal stenosis. Foramina are patent bilaterally. Cervical segments are intact. There is normal alignment. Cervical spinal cord is of normal signal. Craniovertebral junction relationships are within normal limits. There appears to be severe degener ative disc disease noted on the sagittal images at T3-4 T4-T5. Suspect sagittal disc protrusions or h erniations at T2-3, T3-4 and T4-T5. IMPRESSION: 1. Multilevel severe degenerative disc disease with multiple levels demonstrate complete loss of disc space. There is multilevel canal stenosis and foraminal encroachment most marked at C3-C4 with disc protrusion capped by spur resulting in moderate to severe canal stenosis and severe bilateral foramin al encroachment. #2 on the sagittal images there is severe degenerative change involving the upper th oracic spine with multiple sagittal disc protrusion or herniations suspected. Consider thoracic spine MRI.
== END | disposition home or self-care (01) ==
LOC: RADMRIMAIN 08:33
PROVIDERS: ATTEND Neurological Surgery
DX: M48.02 Spinal stenosis, cervical region (principal); M50.323 Other cervical disc degeneration at C6-C7 level; M50.21 Other cervical disc displacement, high cervical region; M99.71 Connective tissue and disc stenosis of intervertebral foramina of cervical region
CPT/HCPCS: 72141

== ENCOUNTER → 2022-05-25 | Outpatient (CLI) | payer MEDICARE, BC ==
--- NOTE | 2022-05-26 07:19 | XR ---
EXAMINATION TYPE: XR cervical spine comp DATE OF EXAM: 05/25/2022 4:27 PM INDICATION: Patient age:Female; 72 years old; Reason for study: Z98.1 ARTHRODESIS STATUS; COMPARISON: 06/27/2021 and MRI 10/21/2021 TECHNIQUE: The cervical spine was imaged in frontal, lateral, odontoid and bilateral oblique. FINDINGS: Anterior fixation hardware extending from C3 to C7 with discectomy changes. Hardware is int act. Additional electronic devices are seen projecting over the skull. No evidence of acute fracture. Vertebral bodies are grossly maintained for height. Spinal alignment i s appropriate. IMPRESSION: 1. No fracture or dislocation. 2. Postsurgical changes with mild degenerative disc disease changes of the cervical spine. Hardware i s intact and in appropriate position.
== END | disposition home or self-care (01) ==
LOC: RADXRMAIN 15:59
PROVIDERS: ATTEND Physician Assistant
DX: M50.30 Other cervical disc degeneration, unspecified cervical region (principal); Z98.1 Arthrodesis status
CPT/HCPCS: 72050

== ENCOUNTER 2022-10-17 13:52 | Observation (INO) | payer MEDICARE, BC ==
[2022-10-17] MEDS ORDERED: SODIUM CHLORIDE 0.9% 1,000 ML IV STA (14:30)
[2022-10-17] MEDS ORDERED: MORPHINE SULFATE 4 MG/ML SYRINGE IVP STA (14:41)
[2022-10-17] MEDS ORDERED: DIPH,PERTUS(ACELL)TETVAC-LF 0.5 ML VIAL IM ONE (14:56)
--- NOTE | 2022-10-17 15:00 | ED ---
General Adult HPI - General Source: patient, family, RN notes reviewed, old records reviewed Mode of arrival: EMS Limitations: no limitations <Alex Terry - Last Filed: 10/17/22 14:55> - General Source: RN notes reviewed, old records reviewed, Caregiver Mode of arrival: EMS Limitations: no limitations - History of Present Illness -: unknown Radiation: non-radiation Severity scale (1-10): 1 Consistency: intermittent Improves with: none Worsens with: none Associated Symptoms: denies other symptoms Treatments Prior to Arrival: none <Tee Castelan - Last Filed: 10/17/22 16:29> - General Chief complaint: Syncope Stated complaint: pass out Time Seen by Provider: 10/17/22 14:00 - History of Present Illness Initial comments: Patient is a 72-year-old female with past medical history remarkable for prior cervical spine surgery, diabetes, hypertension who presents emergency Department complaining of a syncopal episode. Has a total of 4 syncopal episodes since last March. Seems to be episodes where she stands up from her recliner in the living room and walks to the kitchen and then she syncopized shortly afterwards. States she feels it coming on as her vision begins to 0. Feels lightheaded and her head being heavy. Today it occurred and she did bite her tongue. No seizure-like activity and no history of seizures. Patient currently is complaining of acute on chronic neck pain that is unchanged from her baseline. Is complaining of tongue pain. Otherwise is alert and oriented with no focal deficits. Presents with daughter who assists in the history. Denies any preceding chest pain or current chest pain. Denies any shortness breath, abdominal pain, nausea, vomiting, diarrhea. No fevers, chills, cough, sick contacts. No other acute complaints at this time. Does have a history of some form of abnormal heart rate for which she was placed on verapamil in the past. No other acute complaints at this time.Patient fell from standing. No obvious injuries other than the tongue. Is not on blood thinners. (Alex Terry) This is a 72-year-old female who presents with a syncopal event near syncopal event today with multiple recent syncopal events. Patient states that she is hungry currently here in the ER without significant complaint should better head or talking to regarding syncopal event today no headache chest pain shortness of breath or abdominal pain. No prior cough with a syncopal events. Patient at this time from feeling weak and mildly lethargic is really asymptomatic. Also continues to state that she is hungry (Tee Castelan) - Related Data Home Medications Medication Instructions Recorded Confirmed Benazepril [Lotensin] 5 mg PO DAILY 05/28/14 10/17/22 Sertraline HCl [Zoloft] 100 mg PO DAILY 05/28/14 10/17/22 Cyanocobalamin (Vitamin B-12) 1,000 mcg PO DAILY 03/05/19 10/17/22 [Vitamin B-12] rOPINIRole HCL [Requip] 2 mg PO BID 03/05/19 10/17/22 tiZANidine [Zanaflex] 2 mg PO DAILY 03/05/19 10/17/22 Insulin NPL/Insulin Lispro 70 unit SQ BID 12/10/20 10/17/22 [humaLOG MIX 75-25 VIAL] Meclizine [Antivert] 25 mg PO TID 12/10/20 10/17/22 Biotin [Biotin Disolve] 10,000 mcg PO DAILY 10/17/22 10/17/22 Cholecalciferol [Vitamin D3 (125 125 mcg PO DAILY 10/17/22 10/17/22 Mcg = 5000 Iu)] Dorzolamide HCl/Pf [Dorzolamide 2% 1 drop BOTH EYES BID 10/17/22 10/17/22 Eye Drop] Omeprazole [PriLOSEC] 40 mg PO DAILY 10/17/22 10/17/22 Rosuvastatin [Crestor] 10 mg PO DAILY 10/17/22 10/17/22 Verapamil HCl [Verapamil ER] 180 mg PO DAILY 10/17/22 10/17/22 hydrOXYzine HCL [Atarax] 25 mg PO BID 10/17/22 10/17/22 Allergies Allergy/AdvReac Type Severity Reaction Status Date / Time propoxyphene HCl Allergy Severe Hallucinati Verified 10/17/22 15:05 [From Darvon] ons clindamycin Allergy Rash/Hives Verified 10/17/22 15:05 Sulfa (Sulfonamide Allergy Swelling Verified 10/17/22 15:05 Antibiotics) Review of Systems ROS Other: All systems not noted in ROS Statement are negative. <Alex Terry - Last Filed: 10/17/22 14:55> ROS Other: All systems not noted in ROS Statement are negative. <Tee Castelan - Last Filed: 10/17/22 16:29> ROS Statement: Those systems with pertinent positive or pertinent negative responses have been documented in the HPI. Review of Systems: CONST: Denies fever EYES: Denies blurry vision ENT: Endorses tongue pain C/V: Denies Chest pain RESP: Denies shortness of breath GI: Denies abdominal pain : Denies dysuria SKIN: Denies rash. MSK: Denies joint pain. NEURO: Denies headache (Alex Terry) Past Medical History Past Medical History: Diabetes Mellitus, GERD/Reflux, Hyperlipidemia, Hypertension, Osteoarthritis (OA), Rheumatoid Arthritis (RA) Additional Past Medical History / Comment(s): deteriorating disks, glaucoma History of Any Multi-Drug Resistant Organisms: None Reported Past Surgical History: Breast Surgery, Section, Hysterectomy, Joint Replacement, Tonsillectomy, Tubal Ligation Additional Past Surgical History / Comment(s): brendan knee replacements, brendan cataracts, breast reduction, Lumbar cage inserted. Past Anesthesia/Blood Transfusion Reactions: No Reported Reaction Past Psychological History: Depression Smoking Status: Never smoker Past Alcohol Use History: Rare Past Drug Use History: None Reported - Past Family History Mother Family Medical History: Cancer Additional Family Medical History / Comment(s): Breast <Alex Terry - Last Filed: 10/17/22 14:55> General Exam Limitations: no limitations <Alex Terry - Last Filed: 10/17/22 14:55> General appearance: alert, in no apparent distress Head exam: Present: atraumatic, normocephalic, normal inspection Eye exam: Present: normal appearance, PERRL, EOMI. Absent: scleral icterus, conjunctival injection, periorbital swelling ENT exam: Present: normal exam, mucous membranes moist Neck exam: Present: normal inspection. Absent: tenderness, meningismus, lymphadenopathy Respiratory exam: Present: normal lung sounds bilaterally. Absent: respiratory distress, wheezes, rales, rhonchi, stridor Cardiovascular Exam: Present: regular rate, normal rhythm, normal heart sounds. Absent: systolic murmur, diastolic murmur, rubs, gallop, clicks GI/Abdominal exam: Present: soft, normal bowel sounds. Absent: distended, tend erness, guarding, rebound, rigid Extremities exam: Present: normal inspection, full ROM, normal capillary refill. Absent: tenderness, pedal edema, joint swelling, calf tenderness Back exam: Present: normal inspection Neurological exam: Present: alert, oriented X3, CN II-XII intact Psychiatric exam: Present: normal affect, normal mood Skin exam: Present: warm, dry, intact, normal color. Absent: rash <Tee Castelan - Last Filed: 10/17/22 16:29> - General Exam Comments Initial Comments: General: Appears in no acute distress. HEAD: Normal with no signs of head trauma. Negative urban sign. Negative raccoon eyes. EYES: PERRLA, EOMI, conjunctiva normal, no discharge. Pupils 2 mm and equal bilaterally. ENT: Hearing grossly intact, normal oropharynx. Patient has an abrasion loc ated over the left anterior tongue and is swollen. Appear she bit it. Not actively bleeding. RESPIRATORY: Clear breath sounds bilaterally. No wheezes, rales, or rhonchi. C/V: Regular rate and rhythm. S1 and S2 auscultated, no edema, peripheral pulses 2+ and intact throughout ABD: Abd is soft, nontender, nondistended EXT: Normal range of motion, no obvious deformity. Chronic paraspinal cervical spine tenderness to palpation. No midline cervical, thoracic, lumbar spine tenderness to palpation. Pelvis is stable. SKIN: No rashes or lesions observed on exposed skin. NEURO: Alert and oriented x 4. Cranial nerves II-XII intact. No focal sensory or strength deficits. GCS of 15. NIH of 0. Ambulates with a walker at baseline. (Alex Terry) Course <Tee Castelan - Last Filed: 10/17/22 16:29> Vital Signs 10/17/22 10/17/22 13:54 16:00 Temperature 98.1 F Pulse Rate 94 94 Respiratory 18 18 Rate Blood Pressure 145/76 144/80 O2 Sat by Pulse 91 L 95 Oximetry - Reevaluation(s) Reevaluation #1: 10/17/22 16:21 Medical record is reviewed (Tee Castelan) Reevaluation #2: 10/17/22 16:21 Patient has low blood sugar here in the emergency room and continued symptoms of near-syncope, she is fed (Tee Castelan) Reevaluation #3: 10/17/22 16:22 Patient family informed of results and questions answered the field coming with patient sitting in the hospital not comfortable going home (Tee Castelan) Reevaluation #4: 10/17/22 16:25 Was pt. sent in by a medical professional or institution? @ -no Did you speak to anyone other than the patient for history? @ -family Did you review nursing and triage notes? @ -agree Were old charts reviewed? @ -yes Differential Diagnosis? @ -syncope-prior EKG interpreted by me (3pts min.)? @ -yes X-rays interpreted by me (1pt min.)? @ -no CT interpreted by me (1pt min.)? @ -no U/S interpreted by me (1pt. min.)? @ -no What testing was considered but not performed? (CT, X-rays, U/S, labs)? Why? @ -no What meds were considered but not given? Why? @ -no Did you discuss the management of the patient with other professionals? @ -no Did you reconcile home meds? @ -no Was smoking cessation discussed for >3mins.? @ -no Was critical care preformed (if so, how long)? @ -no Were there social determinants of health that impacted care today? How? (Homelessness, low income, unemployed, alcoholism, drug addiction, transportation, low edu. Level, literacy, decrease access to med. care, senior care, rehab)? @ -no Was there de-escalation of care discussed even if they declined? (Discuss DNR or withdrawal of care, Hospice)? @ -no What co-morbidities impacted this encounter? (DM, HTN, Smoking, COPD, CAD, Cancer, CVA, Hep., AIDS, mental health diagnosis, sleep apnea, morbid obesity)? @ -no Was patient admitted / discharged? @ -admit Undiagnosed new problem with uncertain prognosis? @ -no Drug Therapy requiring intensive monitoring for toxicity (Heparin, Nitro, Insulin, Cardizem)? @ -no Were any procedures done? @ -no Diagnosis/symptom? @ -syncope, recurrent hypoglycemia Acute, or Chronic, or Acute on Chronic? @ -no Uncomplicated (without systemic symptoms) or Complicated (systemic symptoms)? @ -no Side effects of treatment? @ -no Exacerbation, Progression, or Severe Exacerbation] @ -no Poses a threat to life or bodily function? @ -no (Tee Castelan) Medical Decision Making - EKG Data -: EKG Interpreted by Me <Alex Terry - Last Filed: 10/17/22 14:55> - Lab Data Result diagrams: 10/17/22 14:44 10/17/22 14:44 - Radiology Data Radiology results: report reviewed (CT brain C-spine chest and pelvis x-ray are negative for traumatic injury), image reviewed <Tee Castelan - Last Filed: 10/17/22 16:29> - Medical Decision Making Was pt. sent in by a medical professional or institution (, PA, C[employer] LACER JACQUARD, urgent care, hospital, or senior living...) When possible be specific @ -No Did you speak to anyone other than the patient for history (EMS, parent, family, police, friend...)? What history was obtained from this source @ -Patient's daughter who is at bedside and assists with the history. Did you review nursing and triage notes (agree or disagree)? Why? @ -I reviewed and agree with nursing and triage notes Were old charts reviewed (outside hosp., previous admission, EMS record, old EK G, old radiological studies, urgent care reports/EKG's, senior living records)? Report findings @ -No old charts were reviewed Differential Diagnosis (chest pain, altered mental status, abdominal pain women, abdominal pain men, vaginal bleeding, weakness, fever, dyspnea, syncope, headache, dizziness, GI bleed, back pain, seizure, CVA, palpatations, mental health, musculoskeletal)? @ -Differential Syncope: Valvular disease, hypertrophic cardiomyopathy, pulmonary embolism, tamponade, tachycardia, bradycardia, SD, hypovolemia, hemorrhage, dissection, anemia, intracranial hemorrhage, seizure, hypoglycemia, carbon monoxide poisoning, this is not meant to be an all-inclusive list. EKG interpreted by me (3pts min.). @ -As above X-rays interpreted by me (1pt min.). @ -Pending CT interpreted by me (1pt min.). @ -Pending U/S interpreted by me (1pt. min.). @ -None done What testing was considered but not performed or refused? (CT, X-rays, U/S, labs)? Why? @ -None What meds were considered but not given or refused? Why? @ -None Did you discuss the management of the patient with other professionals (professionals i.e. , PA, C[employer]ACQUARD, lab, RT, psych nurse, director social welfare, western philosophy professor, teacher, commercial account officer, ed case manager)? Give summary @ -No Was smoking cessation discussed for >3mins.? @ -No Was critical care preformed (if so, how long)? @ -No Were there social determinants of health that impacted care today? How? (Homelessness, low income, unemployed, alcoholism, drug addiction, transportation, low edu. Level, literacy, decrease access to med. care, senior care, rehab)? @ -No Was there de-escalation of care discussed even if they declined (Discuss DNR or withdrawal of care, Hospice)? DNR status @ -No What co-morbidities impacted this encounter? (DM, HTN, Smoking, COPD, CAD, Cancer, CVA, ARF, Chemo, Hep., AIDS, mental health diagnosis, sleep apnea, morbid obesity)? @ -None Was patient admitted / discharged? Hospital course, mention meds given and route, prescriptions, significant lab abnormalities, going to OR and other pertinent info. @ -Based on the patient's presentation and physical exam, I'm concerned for a syncopal episode for the patient. She has had 4 total over the last 6-8 months. Unknown etiology. Does seem somewhat orthostatic hypotension in nature. We'll obtain a syncope workup, as well as CT brain, C-spine, chest x-ray, pelvic x- ray. Tetanus is updated. She'll be given morphine for pain. Vital signs within acceptable limits. Neuro exam is normal. No acute deficits. Vital signs within acceptable limits. Patient was in agreement this plan. EKG showed no signs of acute ischemia. At this time it is the end of my shift. Patient signed out to the oncoming emergency Department physician Dr. Castelan pending workup. (Alex Terry) 72 female recurrent syncope could be hyperglycemic related. Patient is without headache chest pain shortness breath or abdominal pain. No left-sided cause for syncope found here in the emergency department patient is not currently on oral hypoglycemics she is on insulin will feed and place on sliding scale. Patient will be admitted for further evaluation management (Tee Castelan) - Lab Data Lab Results 10/17/22 10/17/22 10/17/22 Range/Units 14:44 14:44 14:44 WBC 8.4 (3.8-10.6) k/uL RBC 4.58 (3.80-5.40) m/uL Hgb 13.7 (11.4-16.0) gm/dL Hct 41.1 (34.0-46.0) % MCV 89.7 (80.0-100.0) fL MCH 29.9 (25.0-35.0) pg MCHC 33.4 (31.0-37.0) g/dL RDW 13.7 (11.5-15.5) % Plt Count 112 L (150-450) k/uL MPV 7.6 Neutrophils % 80 % Lymphocytes % 11 % Monocytes % 6 % Eosinophils % 2 % Basophils % 0 % Neutrophils # 6.7 (1.3-7.7) k/uL Lymphocytes # 0.9 L (1.0-4.8) k/uL Monocytes # 0.5 (0-1.0) k/uL Eosinophils # 0.2 (0-0.7) k/uL Basophils # 0.0 (0-0.2) k/uL PT 10.1 (9.0-12.0) sec INR 1.0 (<1.2) APTT 22.3 (22.0-30.0) sec Sodium (137-145) mmol/L Potassium (3.5-5.1) mmol/L Chloride (98-107) mmol/L Carbon Dioxide (22-30) mmol/L Anion Gap mmol/L BUN (7-17) mg/dL Creatinine (0.52-1.04) mg/dL Est GFR (CKD-EPI)AfAm (>60 ml/min/1.73 sqM) Est GFR (CKD-EPI)NonAf (>60 ml/min/1.73 sqM) Glucose (74-99) mg/dL POC Glucose (mg/dL) (70-110) mg/dL POC Glu Technical Healthcare Consultant ID Calcium (8.4-10.2) mg/dL Magnesium (1.6-2.3) mg/dL Total Bilirubin (0.2-1.3) mg/dL AST (14-36) U/L ALT (4-34) U/L Alkaline Phosphatase (38-126) U/L Total Protein (6.3-8.2) g/dL Albumin (3.5-5.0) g/dL Urine Color Yellow Urine Appearance Clear (Clear) Urine pH 5.5 (5.0-8.0) Ur Specific [place] 1.023 (1.001-1.035) Urine Protein Trace H (Negative) Urine Glucose (UA) Negative (Negative) Urine Ketones Negative (Negative) Urine Blood Negative (Negative) Urine Nitrite Negative (Negative) Urine Bilirubin Negative (Negative) Urine Urobilinogen <2.0 (<2.0) mg/dL Ur Leukocyte Esterase Trace H (Negative) Urine RBC 1 (0-5) /hpf Urine WBC 1 (0-5) /hpf Ur Squamous Epith Cells 2 (0-4) /hpf Hyaline Casts 8 H (0-2) /lpf Urine Mucus Rare H (None) /hpf 10/17/22 10/17/22 Range/Units 14:44 16:12 WBC (3.8-10.6) k/uL RBC (3.80-5.40) m/uL Hgb (11.4-16.0) gm/dL Hct (34.0-46.0) % MCV (80.0-100.0) fL MCH (25.0-35.0) pg MCHC (31.0-37.0) g/dL RDW (11.5-15.5) % Plt Count (150-450) k/uL MPV Neutrophils % % Lymphocytes % % Monocytes % % Eosinophils % % Basophils % % Neutrophils # (1.3-7.7) k/uL Lymphocytes # (1.0-4.8) k/uL Monocytes # (0-1.0) k/uL Eosinophils # (0-0.7) k/uL Basophils # (0-0.2) k/uL PT (9.0-12.0) sec INR (<1.2) APTT (22.0-30.0) sec Sodium 144 (137-145) mmol/L Potassium 3.7 (3.5-5.1) mmol/L Chloride 109 H (98-107) mmol/L Carbon Dioxide 26 (22-30) mmol/L Anion Gap 9 mmol/L BUN 24 H (7-17) mg/dL Creatinine 0.85 (0.52-1.04) mg/dL Est GFR (CKD-EPI)AfAm 78 (>60 ml/min/1.73 sqM) Est GFR (CKD-EPI)NonAf 68 (>60 ml/min/1.73 sqM) Glucose 49 L* (74-99) mg/dL POC Glucose (mg/dL) 55 L (70-110) mg/dL POC Glu Technical Healthcare Consultant ID Clarissa Stokes Calcium 8.6 (8.4-10.2) mg/dL Magnesium 1.7 (1.6-2.3) mg/dL Total Bilirubin 0.5 (0.2-1.3) mg/dL AST 34 (14-36) U/L ALT 20 (4-34) U/L Alkaline Phosphatase 105 (38-126) U/L Total Protein 6.8 (6.3-8.2) g/dL Albumin 3.9 (3.5-5.0) g/dL Urine Color Urine Appearance (Clear) Urine pH (5.0-8.0) Ur Specific [place] (1.001-1.035) Urine Protein (Negative) Urine Glucose (UA) (Negative) Urine Ketones (Negative) Urine Blood (Negative) Urine Nitrite (Negative) Urine Bilirubin (Negative) Urine Urobilinogen (<2.0) mg/dL Ur Leukocyte Esterase (Negative) Urine RBC (0-5) /hpf Urine WBC (0-5) /hpf Ur Squamous Epith Cells (0-4) /hpf Hyaline Casts (0-2) /lpf Urine Mucus (None) /hpf - EKG Data EKG Comments: 12-lead Electrocardiogram Interpretation Note EKG was reviewed and interpreted by myself. 12-lead ECG performed at 1433 is interpreted by me as revealing normal sinus rhythm at a rate of 92 beats per minute. [place] is normal. MI interval is 190 ms, QRS ration is 109 ms, QTc is 122 ms.. There were no ST or T wave abnormalities to suggest myocardial ischemia or injury. R wave progression across the precordium was satisfactory. By my interpretation this EKG is non-diagnostic for acute ischemia. (Alex Terry) Disposition <Alex Terry - Last Filed: 10/17/22 14:55> Is patient prescribed a controlled substance at d/c from ED?: No Time of Disposition: 16:20 <Tee Castelan - Last Filed: 10/17/22 16:29> Clinical Impression: Vasovagal syncope, Syncope Narrative: Recurrent Hypoglycemia (Tee Castelan) Disposition: ADMITTED IP TO THIS HOSP Condition: Fair Referrals: Cora Terry DO [Primary Care Provider] - 1-2 days
[2022-10-17 15:37] LABS: Basophils % (A) 0 %; Eosinophils # (A) 0.2 k/uL (0-0.7); Eosinophils % (A) 2 %; HCT 41.1 % (34.0-46.0); HGB 13.7 gm/dL (11.4-16.0); Lymphocytes # (A) 0.9 k/uL (1.0-4.8); Lymphocytes % (A) 11 %; MCH 29.9 pg (25.0-35.0); MCHC 33.4 g/dL (31.0-37.0); MCV 89.7 fL (80.0-100.0); Mean Platelet Volume 7.6; Monocytes # (A) 0.5 k/uL (0-1.0); Monocytes % (A) 6 %; Neutrophils # (A) 6.7 k/uL (1.3-7.7); Neutrophils % (A) 80 %; Platelet Count 112 k/uL (150-450); RBC 4.58 m/uL (3.80-5.40); RDW 13.7 % (11.5-15.5); WBC 8.4 k/uL (3.8-10.6)
--- NOTE | 2022-10-17 15:49 | CT ---
EXAMINATION TYPE: CT brain rissa yu con DATE OF EXAM: 10/17/2022 COMPARISON: 03/05/2019 HISTORY: syncope CT DLP: 1521.[address] of the brain was performed. The ventricles, basal cisterns and sulci overlying the cerebral convexities demonstrate mild enlargem ent. There is no evidence for intracranial hemorrhage or sulcal effacement. There is decreased attenuatio n about the periventricular white matter and deep white matter of both cerebral hemispheres, compatib le with chronic small vessel ischemia. No mass effects are seen. If symptoms persist consider MRI. Osseous calvarium is intact. IMPRESSION: 1. Age related atrophic and chronic small vessel ischemic change without acute intracranial process seen at this time. CT Cervical Spine: Unenhanced CT of the cervical spine was performed with bone and soft tissue window settings submitted . Coronal and sagittal reconstruction is obtained. There is normal alignment and prevertebral soft tissues. No evidence for acute cervical fracture. Pos toperative changes of ACDF extending from C3 through C7-T1. Postoperative alignment is felt to be wit hin normal limits. There is moderate hard disc noted at C3-4 with effacement of the ventral thecal sa c and possible central stenosis. Biapical scarring. IMPRESSION: 1. No evidence for acute fracture or subluxation of the cervical spine.
--- NOTE | 2022-10-17 15:50 | XR ---
EXAMINATION TYPE: XR chest 2V DATE OF EXAM: 10/17/2022 COMPARISON: 07/05/2021 HISTORY: Shortness of breath TECHNIQUE: Frontal and lateral views of the chest are obtained. FINDINGS: Scattered senescent parenchymal changes noted. Hyperinflation compatible with COPD. No evidence for infiltrate. No evidence for atelectasis. Heart size is stable. Mediastinal structures are stable and grossly unremarkable. No evidence for hilar prominence. Degenerative changes dorsal spine. IMPRESSION: 1. No evidence for acute pulmonary disease.
--- NOTE | 2022-10-17 15:51 | XR ---
EXAMINATION TYPE: XR pelvis AP view DATE OF EXAM: 10/17/2022 CLINICAL HISTORY: pain TECHNIQUE: Single view the pelvis is submitted. FINDINGS: No evidence for fracture, dislocation or bony lesion. Joint spaces are well-preserved. S I joints appear symmetric. IMPRESSION: 1. No acute fracture or dislocation seen. ICD 10 NO FRACTURE, INITIAL EVALUATION
[2022-10-17 15:58] LABS: Albumin 3.9 g/dL (3.5-5.0); Calcium 8.6 mg/dL (8.4-10.2); Magnesium 1.7 mg/dL (1.6-2.3); Potassium 3.7 mmol/L (3.5-5.1); Total Bilirubin 0.5 mg/dL (0.2-1.3); Total Protein 6.8 g/dL (6.3-8.2)
[2022-10-17 16:15] LABS: Partial Thromboplastin Time 22.3 sec (22.0-30.0); Prothrombin Time 10.1 sec (9.0-12.0)
[2022-10-17 16:16] LABS: Appearance,Urine Clear (Clear); Bilirubin,Urine Negative (Negative); Blood,Urine Negative (Negative); Color,Urine Yellow; Glucose,Urine (UA) Negative (Negative); Hyaline Casts,Urine 8 /lpf (0-2); Ketones,Urine Negative (Negative); Leukocyte Esterase,Urine Trace (Negative); Mucus,Urine Rare /hpf; Nitrite,Urine Negative (Negative); PH, Urine 5.5 (5.0-8.0); Protein,Urine Trace (Negative); RBC,Urine 1 /hpf (0-5); Specific Gravity,Urine 1.023 (1.001-1.035); Squamous Epithelial Cell,Urine 2 /hpf (0-4); Urobilinogen,Urine <2.0 mg/dL (<2.0); WBC,Urine 1 /hpf (0-5)
[2022-10-17 16:17] LABS: Glucose,Whole Blood 55 mg/dL (70-110)
[2022-10-17] MEDS ORDERED: NALOXONE 0.4 MG/ML 1 ML VIAL IV PRN (16:19)
[2022-10-17] MEDS ORDERED: ONDANSETRON 4 MG/2 ML VIAL IVP PRN (16:19)
[2022-10-17] MEDS ORDERED: MORPHINE SULFATE 4 MG/ML SYRINGE IV PRN (16:19)
[2022-10-17 17:15] LABS: Glucose,Whole Blood 83 mg/dL (70-110)
[2022-10-17 21:41] LABS: Glucose,Whole Blood 64 mg/dL (70-110)
[2022-10-17] MEDS ORDERED: DEXTROSE 50% SYRINGE 50 ML IVP PRN ×2 (22:01)
[2022-10-17 22:10] LABS: Glucose,Whole Blood 93 mg/dL (70-110)
[2022-10-17] MEDS: MECLIZINE 25 MG TAB PO SCH (22:16)
[2022-10-17] MEDS: hydrOXYzine HCL 25 MG TAB PO SCH (22:16)
[2022-10-17] MEDS: SERTRALINE 100 MG TAB PO SCH (22:16)
[2022-10-17] MEDS: ACETAMINOPHEN TAB 325 MG TAB PO PRN (22:16)
[2022-10-18 02:20] LABS: Glucose,Whole Blood 137 mg/dL (70-110)
[2022-10-18 05:58] LABS: Glucose,Whole Blood 94 mg/dL (70-110)
[2022-10-18] MEDS: INSULIN ASPART (NovoLOG) 100 UNIT/ML VIAL SQ SCH ×7 (06:03→22:38)
[2022-10-18] MEDS: MECLIZINE 25 MG TAB PO SCH ×3 (08:23→22:30)
[2022-10-18] MEDS: hydrOXYzine HCL 25 MG TAB PO SCH ×2 (08:23→22:29)
[2022-10-18] MEDS ORDERED: SODIUM CHLORIDE 0.9% 1,000 ML IV SCH (09:15)
[2022-10-18] MEDS: ATORVASTATIN 20 MG TAB PO SCH (09:39)
[2022-10-18] MEDS: VERAPAMIL SR 180 MG TABLET.ER PO SCH (09:39)
[2022-10-18] MEDS: SODIUM CHLORIDE 0.9% 1,000 ML IV SCH (09:39)
[2022-10-18] MEDS: PANTOPRAZOLE 40 MG TABLET PO SCH (09:39)
[2022-10-18] MEDS ORDERED: DEXTROSE 50% SYRINGE 50 ML IVP PRN ×2 (10:10)
[2022-10-18] MEDS ORDERED: IV FLUID CONTINUATION 1,000 ML IV ONE (10:32)
--- NOTE | 2022-10-18 10:53 | P.CRDCN ---
History of Present Illness History of present illness: HISTORY OF PRESENT ILLNESS: This is a 72-year-old female with a past medical history significant for syncope, diabetes, hypertension, hyperlipidemia, depression, vertigo, and SVT. Patient follows with a fugitive detective out of [facility] in [place]. We have been asked to see the patient in consultation for syncope. Patient examined at the bedside. The patient's daughters at the bedside and is providing a majority of patient's history. The patient is admitted to the hospital secondary to a syncopal episode. Patient was found to be hypoglycemic. She gives a history that this is the fourth time this has happened to her. She states that she is usually sitting in the chair and feels dizzy and thinks that her sugar is low so she stands up to walk into the kitchen to get something to eat when she passes out. She states when she has these episodes and takes her proximally 40 minutes to wake up. She denies any chest pain or pressure. She denies any shortness of breath. The patient's daughter reports that she was hospitalized earlier this year in [facility] in [place]. She was found to have SVT and was started on verapamil. The patient also reports that she had a medication stress test a few weeks ago which was negative. * EKG reveals sinus mechanism with no signs of acute ischemia * Chest xray negative for acute process * Laboratory data: WBC 8.4. Hemoglobin 13.7. Platelet count 112. Sodium 144. Potassium 3.7. Glucose 49. Troponin negative 1 * Current home cardiac medications include verapamil 180 mg daily, Lotensin 5 mg daily, and Crestor 10 mg daily REVIEW OF SYSTEMS: At the time of my exam: CONSTITUTIONAL: Denies fever or chills. HEENT: Denies blurred vision, vision changes, or eye pain. Denies hemoptysis CARDIOVASCULAR: Denies chest pain. Denies orthopnea. Denies PND. Denies pal pitations RESPIRATORY: Denies shortness of breath. GASTROINTESTINAL: Denies abdominal pain. Denies nausea or vomiting. HEMATOLOGIC: Denies bleeding disorders. GENITOURINARY: Denies any blood in urine. SKIN: Denies pruitis. Denies rash. PHYSICAL EXAM: VITAL SIGNS: Reviewed. GENERAL: Well-developed in no acute distress. HEENT: Head is normocephalic. Pupils are equal, round. Sclerae anicteric. Mucous membranes of the mouth are moist. Neck supple. No JVD or thyromegaly LUNGS: Respirations even and unlabored. Lungs essentially clear to auscultation bilaterally. HEART: Regular rate and rhythm. S1 and S2 heard. ABDOMEN: Soft. Nondistended. Nontender. EXTREMITIES: Normal range of motion. No clubbing or cyanosis. Peripheral pulses intact. No lower extremity edema NEUROLOGIC: Awake and alert. Oriented x 3. ASSESSMENT: Recurrent syncope Hypoglycemia History of SVT Hypertension Hyperlipidemia Diabetes History of vertigo History of depression PLAN: Patient with syncopal episodes that correlate with hypoglycemia. However we will rule out cardiac etiology. Patient undergo tilt table testing today Possibility of loop recorder insertion for monitoring of future syncopal episodes Continue home cardiac medications Obtain records from patient's primary fugitive detective Further recommendations pending patient's course Nurse practitioner note has been reviewed by physician. Signing provider agrees with the documented findings, assessment, and plan of care. Past Medical History Past Medical History: Diabetes Mellitus, GERD/Reflux, Hyperlipidemia, Hypert ension, Osteoarthritis (OA), Rheumatoid Arthritis (RA) Additional Past Medical History / Comment(s): deteriorating disks, glaucoma History of Any Multi-Drug Resistant Organisms: None Reported Past Surgical History: Breast Surgery, Section, Hysterectomy, Joint Replacement, Tonsillectomy, Tubal Ligation Additional Past Surgical History / Comment(s): brendan knee replacements, brendan cataracts, breast reduction, Lumbar cage inserted. Past Anesthesia/Blood Transfusion Reactions: No Reported Reaction Past Psychological History: Depression Smoking Status: Never smoker Past Alcohol Use History: Rare Past Drug Use History: None Reported - Past Family History Mother Family Medical History: Cancer Additional Family Medical History / Comment(s): Breast Medications and Allergies Home Medications Medication Instructions Recorded Confirmed Type Benazepril [Lotensin] 5 mg PO DAILY 05/28/14 10/17/22 History Sertraline HCl [Zoloft] 100 mg PO DAILY 05/28/14 10/17/22 History Cyanocobalamin (Vitamin B-12) 1,000 mcg PO DAILY 03/05/19 10/17/22 History [Vitamin B-12] rOPINIRole HCL [Requip] 2 mg PO BID 03/05/19 10/17/22 History tiZANidine [Zanaflex] 2 mg PO DAILY 03/05/19 10/17/22 History Insulin NPL/Insulin Lispro 70 unit SQ BID 12/10/20 10/17/22 History [humaLOG MIX 75-25 VIAL] Meclizine [Antivert] 25 mg PO TID 12/10/20 10/17/22 History Biotin [Biotin Disolve] 10,000 mcg PO DAILY 10/17/22 10/17/22 History Cholecalciferol [Vitamin D3 (125 125 mcg PO DAILY 10/17/22 10/17/22 History Mcg = 5000 Iu)] Dorzolamide HCl/Pf [Dorzolamide 2% 1 drop BOTH EYES BID 10/17/22 10/17/22 History Eye Drop] Omeprazole [PriLOSEC] 40 mg PO DAILY 10/17/22 10/17/22 History Rosuvastatin [Crestor] 10 mg PO DAILY 10/17/22 10/17/22 History Verapamil HCl [Verapamil ER] 180 mg PO DAILY 10/17/22 10/17/22 History hydrOXYzine HCL [Atarax] 25 mg PO BID 10/17/22 10/17/22 History Allergies Allergy/AdvReac Type Severity Reaction Status Date / Time propoxyphene HCl Allergy Severe Hallucinati Verified 10/17/22 15:05 [From Darvon] ons clindamycin Allergy Rash/Hives Verified 10/17/22 15:05 Sulfa (Sulfonamide Allergy Swelling Verified 10/17/22 15:05 Antibiotics) Physical Exam Vitals: Vital Signs Temp Pulse Pulse Pulse Pulse Pulse Resp 10/18/22 07:38 10/18/22 07:15 98.1 F 83 16 10/18/22 06:03 85 82 85 10/18/22 02:00 98.2 F 80 14 10/17/22 21:40 98.3 F 81 18 10/17/22 20:43 80 16 10/17/22 20:24 80 18 10/17/22 17:55 98.3 F 93 18 10/17/22 16:00 94 18 10/17/22 13:54 98.1 F 94 18 BP BP BP BP BP Pulse Ox 10/18/22 07:38 96 10/18/22 07:15 151/89 93 L 10/18/22 06:03 166/84 149/89 169/79 10/18/22 02:00 128/72 96 10/17/22 21:40 155/74 94 L 10/17/22 20:43 148/88 96 10/17/22 20:24 148/88 96 10/17/22 17:55 141/66 96 10/17/22 16:00 144/80 95 10/17/22 13:54 145/76 91 L Intake and Output 10/17/22 10/18/22 10/18/22 22:59 06:59 14:59 Other: Voiding Method Toilet # Voids 1 0 Weight 86.183 kg Results 10/17/22 14:44 10/17/22 14:44 Cardiac Enzymes 10/17/22 10/17/22 Range/Units 14:44 14:44 AST 34 (14-36) U/L Troponin I <0.012 (0.000-0.034) ng/mL Coagulation 10/17/22 Range/Units 14:44 PT 10.1 (9.0-12.0) sec APTT 22.3 (22.0-30.0) sec CBC 10/17/22 Range/Units 14:44 WBC 8.4 (3.8-10.6) k/uL RBC 4.58 (3.80-5.40) m/uL Hgb 13.7 (11.4-16.0) gm/dL Hct 41.1 (34.0-46.0) % Plt Count 112 L (150-450) k/uL Comprehensive Metabolic Panel 10/17/22 Range/Units 14:44 Sodium 144 (137-145) mmol/L Potassium 3.7 (3.5-5.1) mmol/L Chloride 109 H (98-107) mmol/L Carbon Dioxide 26 (22-30) mmol/L BUN 24 H (7-17) mg/dL Creatinine 0.85 (0.52-1.04) mg/dL Glucose 49 L* (74-99) mg/dL Calcium 8.6 (8.4-10.2) mg/dL AST 34 (14-36) U/L ALT 20 (4-34) U/L Alkaline Phosphatase 105 (38-126) U/L Total Protein 6.8 (6.3-8.2) g/dL Albumin 3.9 (3.5-5.0) g/dL Current Medications Generic Name Dose Route Start Last Admin Trade Name Freq PRN Reason Stop Dose Admin Acetaminophen 650 mg 10/17/22 22:00 10/17/22 22:16 Acetaminophen Tab 325 Mg Tab PO 650 mg Q4HR PRN Administration Fever and/ or Pain Atorvastatin Calcium 20 mg 10/18/22 09:00 Atorvastatin 20 Mg Tab PO DAILY [facility] Dextrose/Water 25 ml 10/17/22 22:01 Dextrose 50% Syringe 50 Ml IVP PER PROTOCOL PRN Hypoglycemia Protocol Dextrose/Water 50 ml 10/17/22 22:01 Dextrose 50% Syringe 50 Ml IVP PER PROTOCOL PRN Hypoglycemia Protocol Dorzolamide HCl 1 drops 10/18/22 09:00 Dorzolamide Hcl 2% Drops 10 Ml Btl BOTH EYES BID [facility] Hydroxyzine HCl 25 mg 10/17/22 22:15 10/18/22 08:23 Hydroxyzine Hcl 25 Mg Tab PO 25 mg BID JUAN J Administration Insulin Aspart 0 unit 10/18/22 07:30 10/18/22 06:03 Insulin Aspart (Novolog) 100 Unit/Ml Vial SQ Not Given ACHS [facility] Protocol Meclizine HCl 25 mg 10/17/22 22:15 10/18/22 08:23 Meclizine 25 Mg Tab PO 25 mg TID JUAN J Administration Morphine Sulfate 4 mg 10/17/22 16:19 Morphine Sulfate 4 Mg/Ml Syringe IV Q4HR PRN Severe Pain (Scale 7 to 10) Naloxone HCl 0.2 mg 10/17/22 16:19 Naloxone 0.4 Mg/Ml 1 Ml Vial IV Q2M PRN Opioid Reversal Ondansetron HCl 4 mg 10/17/22 16:19 Ondansetron 4 Mg/2 Ml Vial IVP Q8HR PRN Nausea And Vomiting Pantoprazole Sodium 40 mg 10/18/22 09:00 Pantoprazole 40 Mg Tablet PO DAILY@0730 [facility] Ropinirole HCl 2 mg 10/18/22 09:00 Ropinirole Hcl 1 Mg Tab PO BID [facility] Sertraline HCl 100 mg 10/17/22 22:15 10/17/22 22:16 Sertraline 100 Mg Tab PO 100 mg HS [facility] Administration Verapamil HCl 180 mg 10/18/22 09:00 Verapamil Sr 180 Mg Tablet.Er PO DAILY [facility] Intake and Output 10/17/22 10/18/22 10/18/22 22:59 06:59 14:59 Other: Voiding Method Toilet # Voids 1 0 Weight 86.183 kg 10/17/22 14:44 10/17/22 14:44
[2022-10-18 12:16] LABS: Basophils % (A) 0 %; Eosinophils # (A) 0.2 k/uL (0-0.7); Eosinophils % (A) 3 %; HCT 36.4 % (34.0-46.0); Lymphocytes % (A) 15 %; MCH 29.9 pg (25.0-35.0); MCV 90.5 fL (80.0-100.0); Mean Platelet Volume 7.6; Monocytes # (A) 0.4 k/uL (0-1.0); Monocytes % (A) 5 %; Neutrophils # (A) 5.1 k/uL (1.3-7.7); Neutrophils % (A) 76 %; Platelet Count 108 k/uL (150-450); RBC 4.02 m/uL (3.80-5.40); RDW 13.7 % (11.5-15.5); WBC 6.7 k/uL (3.8-10.6)
--- NOTE | 2022-10-18 12:16 | P.HPIM ---
History of Present Illness H&P Date: 10/18/22 Chief Complaint: Syncope, hypoglycemia Anupama Carnes is a 72 yo F with PMH significant for T2DM, HTN, HLD, CAD, NSTEMI,SVT-recently diagnosed with verapamil initiated,strong family history of CAD, vertigo. Pt transported to the ED via EMS status post syncope and hypoglycemia. Daughter reports this is her fourth time since May passing out, without incontinence of urine or bowel movement, occurs upon standing up from sitting, while attempting to walk into another room. Patient gives herself 70 units of Humalog mix 75-20 twice daily, infrequently checks her blood sugars and skips meals often. Reports recent negative stress test with slip cover cutter out of [facility]. Denies chest pain, palpitations or shortness of breath. Yesterday morning patient did not eat breakfast, did not check her blood sugar, administered her 70 units of Humalog mix, proceeded outside, worked in her flower bed, felt lightheaded with vision worsening, proceeded inside, sat down in recliner, rested for a few minutes, felt dizzy-figured her blood sugar was low. Proceeded to get out of recliner, ambulate into the kitchen and passed out. Daughter reports it takes her approximately 40 minutes to wake up from her syncopal events.Sustained a tongue bite .Denies seizure-like activity or history of seizures. Chronic neck pain. Denies chest pain, palpitations or shortness of breath .Majority of history obtained from daughter. EKG reported sinus rhythm, chest x-ray reported negative for acute pulmonary disease. CT brain- cspine reported no acute intracranial process, no evidence for acute fracture or subluxation of the C-spine. Pelvis x-ray reported no acute fracture or dislocation seen. Glucose 49 on admission. Afebrile, normal WBC. Hemoglobin 13.7, platelets 112, INR 1, sodium 144, potassium 3.7, bicarbonate 26, BUN 24, creatinine 0.85, lactic acid 2.3, resolved with IV fluid hydration 1.2, magnesium 1.7. UA negative. Review of Systems Review of Systems Constitutional: Denies chills, Denies fever Eyes: denies blurred vision, denies pain Ears, nose, mouth and throat: Denies headache, Denies sore throat Cardiovascular: Reports chest pain, Reports dyspnea on exertion, Denies shortness of breath Respiratory: Denies cough Gastrointestinal: Denies abdominal pain, Denies diarrhea, Denies nausea, Denies vomiting Genitourinary: Denies dysuria, Denies hematuria Musculoskeletal: Denies myalgias Integumentary: Denies pruritus, Denies rash Neurological: Reports vertigo, Denies numbness, Denies weakness. Currently denies dizziness while sitting. Psychiatric: Denies anxiety, Denies depression Endocrine: Denies fatigue, Denies weight change Past Medical History Past Medical History: Diabetes Mellitus, GERD/Reflux, Hyperlipidemia, Hypertension, Osteoarthritis (OA), Rheumatoid Arthritis (RA) Additional Past Medical History / Comment(s): deteriorating disks, glaucoma History of Any Multi-Drug Resistant Organisms: None Reported Past Surgical History: Breast Surgery, Section, Hysterectomy, Joint Replacement, Tonsillectomy, Tubal Ligation Additional Past Surgical History / Comment(s): brendan knee replacements, brendan cataracts, breast reduction, Lumbar cage inserted. Past Anesthesia/Blood Transfusion Reactions: No Reported Reaction Past Psychological History: Depression Smoking Status: Never smoker Past Alcohol Use History: Rare Past Drug Use History: None Reported - Past Family History Mother Family Medical History: Cancer Additional Family Medical History / Comment(s): Breast Medications and Allergies Home Medications Medication Instructions Recorded Confirmed Type Benazepril [Lotensin] 5 mg PO DAILY 05/28/14 10/17/22 History Sertraline HCl [Zoloft] 100 mg PO DAILY 05/28/14 10/17/22 History Cyanocobalamin (Vitamin B-12) 1,000 mcg PO DAILY 03/05/19 10/17/22 History [Vitamin B-12] rOPINIRole HCL [Requip] 2 mg PO BID 03/05/19 10/17/22 History tiZANidine [Zanaflex] 2 mg PO DAILY 03/05/19 10/17/22 History Insulin NPL/Insulin Lispro 70 unit SQ BID 12/10/20 10/17/22 History [humaLOG MIX 75-25 VIAL] Meclizine [Antivert] 25 mg PO TID 12/10/20 10/17/22 History Biotin [Biotin Disolve] 10,000 mcg PO DAILY 10/17/22 10/17/22 History Cholecalciferol [Vitamin D3 (125 125 mcg PO DAILY 10/17/22 10/17/22 History Mcg = 5000 Iu)] Dorzolamide HCl/Pf [Dorzolamide 2% 1 drop BOTH EYES BID 10/17/22 10/17/22 History Eye Drop] Omeprazole [PriLOSEC] 40 mg PO DAILY 10/17/22 10/17/22 History Rosuvastatin [Crestor] 10 mg PO DAILY 10/17/22 10/17/22 History Verapamil HCl [Verapamil ER] 180 mg PO DAILY 10/17/22 10/17/22 History hydrOXYzine HCL [Atarax] 25 mg PO BID 10/17/22 10/17/22 History Allergies Allergy/AdvReac Type Severity Reaction Status Date / Time propoxyphene HCl Allergy Severe Hallucinati Verified 10/17/22 15:05 [From Darvon] ons clindamycin Allergy Rash/Hives Verified 10/17/22 15:05 Sulfa (Sulfonamide Allergy Swelling Verified 10/17/22 15:05 Antibiotics) Physical Exam Vitals: Vital Signs Temp Pulse Pulse Pulse Pulse Pulse Resp 10/18/22 07:38 10/18/22 07:15 98.1 F 83 16 10/18/22 06:03 85 82 85 10/18/22 02:00 98.2 F 80 14 10/17/22 21:40 98.3 F 81 18 10/17/22 20:43 80 16 10/17/22 20:24 80 18 10/17/22 17:55 98.3 F 93 18 10/17/22 16:00 94 18 10/17/22 13:54 98.1 F 94 18 BP BP BP BP BP Pulse Ox 10/18/22 07:38 96 10/18/22 07:15 151/89 93 L 10/18/22 06:03 166/84 149/89 169/79 10/18/22 02:00 128/72 96 10/17/22 21:40 155/74 94 L 10/17/22 20:43 148/88 96 10/17/22 20:24 148/88 96 10/17/22 17:55 141/66 96 10/17/22 16:00 144/80 95 10/17/22 13:54 145/76 91 L Intake and Output 10/17/22 10/18/22 10/18/22 22:59 06:59 14:59 Other: Voiding Method Toilet # Voids 1 0 Weight 86.183 kg General: well nourished, well developed, sitting up in chair, in NAD. Vitals reviewed Eyes: PERRL, EOMI, conjunctiva normal HENT: normocephalic, mucus membranes moist, hard of hearing, wearing hearing aids Neck: supple, no JVD Lungs: normal respiratory effort, no wheezes or rales CV: Regular rate and rhythm, no murmur. Peripheral pulses 2+ Abdomen: soft, nondistended, no organomegaly Lymph: no cervical or axillary LAD Skin: warm and dry. No edema Neuro: A&Ox3, normal mood and affect Results CBC & Chem 7: 10/17/22 14:44 10/17/22 14:44 Labs: Abnormal Lab Results - Last 24 Hours (Table) 10/17/22 10/17/22 10/17/22 Range/Units 14:44 14:44 14:44 Plt Count 112 L (150-450) k/uL Lymphocytes # 0.9 L (1.0-4.8) k/uL Chloride 109 H (98-107) mmol/L BUN 24 H (7-17) mg/dL Glucose 49 L* (74-99) mg/dL POC Glucose (mg/dL) (70-110) mg/dL Plasma Lactic Acid Jesús (0.7-2.0) mmol/L Urine Protein Trace H (Negative) Ur Leukocyte Esterase Trace H (Negative) Hyaline Casts 8 H (0-2) /lpf Urine Mucus Rare H (None) /hpf 10/17/22 10/17/22 10/17/22 Range/Units 14:45 16:12 21:39 Plt Count (150-450) k/uL Lymphocytes # (1.0-4.8) k/uL Chloride (98-107) mmol/L BUN (7-17) mg/dL Glucose (74-99) mg/dL POC Glucose (mg/dL) 55 L 64 L (70-110) mg/dL Plasma Lactic Acid Jesús 2.3 H* (0.7-2.0) mmol/L Urine Protein (Negative) Ur Leukocyte Esterase (Negative) Hyaline Casts (0-2) /lpf Urine Mucus (None) /hpf 10/18/22 Range/Units 02:17 Plt Count (150-450) k/uL Lymphocytes # (1.0-4.8) k/uL Chloride (98-107) mmol/L BUN (7-17) mg/dL Glucose (74-99) mg/dL POC Glucose (mg/dL) 137 H (70-110) mg/dL Plasma Lactic Acid Jesús (0.7-2.0) mmol/L Urine Protein (Negative) Ur Leukocyte Esterase (Negative) Hyaline Casts (0-2) /lpf Urine Mucus (None) /hpf Assessment and Plan Assessment: Recurrent Syncope, suspect related to hypoglycemia, blood sugars 55 on admission, in a diabetic patient noncompliant with checking her blood sugars, skips meals, possibly also related to arrhythmia in a patient with SVT follows with slip cover cutter in [place]. Lactic acidosis secondary to hypoglycemia Diabetes mellitus type 2 History of vertigo CAD, history of NSTEMI,SVT Hypertension Hyperlipidemia History of depression Morbid obesity, BMI 34.8 Plan: Continue on current medication regime ,monitoring and symptomatic treatment. Orthostatic vital signs every shift. Telemetry. Humalog mix 75-25 discontinued. Lantus, sliding scale and pre-meal insulin with parameters ordered. Cardiology consult in place, recommendations pending. Plan of care discussed at bedside with both patient and daughter. The impression and plan of care has been dictated as directed. : I performed a history and examination of this patient, discussed the same with the dictator. I agree with the dictator's note ,documented as a scribe. Any additional findings or plans will be noted.
[2022-10-18 12:26] LABS: Glucose,Whole Blood 246 mg/dL (70-110)
[2022-10-18 12:30] LABS: ALT 21 U/L (4-34); AST 45 U/L (14-36); African American GFR (CKD) >90 (>60 ml/min/1.73 sqM); Albumin 3.4 g/dL (3.5-5.0); Albumin/Globulin Ratio 1.3; Alkaline Phosphatase 85 U/L (38-126); Anion Gap 10 mmol/L; Blood Urea Nitrogen 16 mg/dL (7-17); Calcium 8.2 mg/dL (8.4-10.2); Carbon Dioxide 20 mmol/L (22-30); Chloride 106 mmol/L (98-107); Globulin 2.7 g/dL; Glucose 276 mg/dL (74-99); Magnesium 1.5 mg/dL (1.6-2.3); Non-African American GFR(CKD) 81 (>60 ml/min/1.73 sqM); Phosphorus 3.6 mg/dL (2.5-4.5); Sodium 136 mmol/L (137-145); Total Bilirubin 0.8 mg/dL (0.2-1.3); Total Protein 6.1 g/dL (6.3-8.2)
[2022-10-18 12:42] LABS: Potassium 4.3 mmol/L (3.5-5.1)
[2022-10-18] MEDS: DORZOLAMIDE HCL 2% DROPS 10 ML BTL BOTH EYES SCH ×2 (13:27→22:30)
[2022-10-18 14:08] LABS: T4, Free (Free Thyroxine) 1.35 ng/dL (0.78-2.19)
[2022-10-18 14:45] VITALS: BMI 34.7
[2022-10-18] MEDS: ACETAMINOPHEN TAB 325 MG TAB PO PRN ×2 (15:48→22:38)
[2022-10-18 17:26] LABS: Glucose,Whole Blood 175 mg/dL (70-110)
[2022-10-18] MEDS ORDERED: MAGNESIUM SULFATE-D5W PMX 1 GM in DEXTROSE/WATER 1 100ML.BAG IVPB ONE (19:33)
[2022-10-18 21:25] LABS: Glucose,Whole Blood 228 mg/dL (70-110)
[2022-10-18] MEDS: SERTRALINE 100 MG TAB PO SCH (22:29)
[2022-10-19] MEDS: PANTOPRAZOLE 40 MG TABLET PO SCH (06:20)
[2022-10-19] MEDS: SODIUM CHLORIDE 0.9% 1,000 ML IV SCH (06:20)
[2022-10-19] MEDS ORDERED: INSULIN DETEMIR (LEVEMIR) 100 UNIT/ML SYR SQ SCH (07:00)
[2022-10-19 07:22] LABS: Glucose,Whole Blood 174 mg/dL (70-110)
[2022-10-19 07:55] VITALS: BP 152/79; PULSE 84; RESP 16; TEMP 97.4
[2022-10-19] MEDS: MECLIZINE 25 MG TAB PO SCH (08:50)
[2022-10-19] MEDS: VERAPAMIL SR 180 MG TABLET.ER PO SCH (08:50)
[2022-10-19] MEDS: hydrOXYzine HCL 25 MG TAB PO SCH (08:50)
[2022-10-19] MEDS: ATORVASTATIN 20 MG TAB PO SCH (08:50)
[2022-10-19] MEDS: DORZOLAMIDE HCL 2% DROPS 10 ML BTL BOTH EYES SCH (08:51)
[2022-10-19] MEDS: INSULIN ASPART (NovoLOG) 100 UNIT/ML VIAL SQ SCH (08:57)
--- NOTE | 2022-10-19 10:38 | P.PN ---
Subjective Progress Note Date: 10/19/22 HISTORY OF PRESENT ILLNESS: This is a 72-year-old female with a past medical history significant for syncope, diabetes, hypertension, hyperlipidemia, depression, vertigo, and SVT. Patient follows with a package line operator out of [facility] in [place]. We have been asked to see the patient in consultation for syncope. Patient examined at the bedside. The patient's daughters at the bedside and is providing a majority of patient's history. The patient is admitted to the hospital secondary to a syncopal episode. Patient was found to be hypoglycemic. She gives a history that this is the fourth time this has happened to her. She states that she is usually sitting in the chair and feels dizzy and thinks that her sugar is low so she stands up to walk into the kitchen to get something to eat when she passes out. She states when she has these episodes and takes her proximally 40 minutes to wake up. She denies any chest pain or pressure. She denies any shortness of breath. The patient's daughter reports that she was hospitalized earlier this year in [facility] in [place]. She was found to have SVT and was started on verapamil. The patient also reports that she had a medication stress test a few weeks ago which was negative. * EKG reveals sinus mechanism with no signs of acute ischemia * Chest xray negative for acute process * Laboratory data: WBC 8.4. Hemoglobin 13.7. Platelet count 112. Sodium 144. Potassium 3.7. Glucose 49. Troponin negative 1 * Current home cardiac medications include verapamil 180 mg daily, Lotensin 5 mg daily, and Crestor 10 mg daily 10/19/2022 Patient examined this morning at the bedside. Patient denies chest pain or pressure. Denies SOB. Patient unable to tolerate tilt table testing yesterday. Records from patients previous package line operator reviewed. PHYSICAL EXAM: VITAL SIGNS: Reviewed. GENERAL: Well-developed in no acute distress. HEENT: Head is normocephalic. Pupils are equal, round. Sclerae anicteric. Mucous membranes of the mouth are moist. Neck supple. No JVD or thyromegaly LUNGS: Respirations even and unlabored. Lungs essentially clear to auscultation bilaterally. HEART: Regular rate and rhythm. S1 and S2 heard. ABDOMEN: Soft. Nondistended. Nontender. EXTREMITIES: Normal range of motion. No clubbing or cyanosis. Peripheral pulses intact. No lower extremity edema NEUROLOGIC: Awake and alert. Oriented x 3. ASSESSMENT: Recurrent syncope Hypoglycemia History of SVT Hypertension Hyperlipidemia Diabetes History of vertigo History of depression PLAN: Continue current cardiac medications Patient to receive event monitor at discharge Patient would like to follow up post discharge with Dr. To as he is closer than her previous package line operator Follow up in 4 weeks. We will sign off. Please reconsult if needed Nurse practitioner note has been reviewed by physician. Signing provider agrees with the documented findings, assessment, and plan of care. Objective - Vital Signs Vital signs: Vital Signs Temp 97.4 F L 10/19/22 07:00 Pulse 84 10/19/22 08:00 Resp 16 10/19/22 08:00 BP 152/79 10/19/22 07:00 Pulse Ox 93 L 10/19/22 07:00 FiO2 Intake & Output 10/18/22 10/19/22 10/19/22 18:59 06:59 18:59 Intake Total 50 118 Balance 50 118 Weight 86.183 kg Intake: IV 50 Oral 118 Other: Voiding Method Toilet # Voids 3 5 - Labs CBC & Chem 7: 10/18/22 11:28 10/18/22 11:28 Labs: Abnormal Lab Results - Last 24 Hours (Table) 10/18/22 10/18/22 10/18/22 Range/Units 11:28 11:28 11:28 Plt Count 108 L (150-450) k/uL Sodium 136 L (137-145) mmol/L Carbon Dioxide 20 L (22-30) mmol/L Glucose 276 H (74-99) mg/dL POC Glucose (mg/dL) (70-110) mg/dL Hemoglobin A1c 6.4 H (0.0-6.0) % Calcium 8.2 L (8.4-10.2) mg/dL Magnesium 1.5 L (1.6-2.3) mg/dL AST 45 H (14-36) U/L Total Protein 6.1 L (6.3-8.2) g/dL Albumin 3.4 L (3.5-5.0) g/dL TSH (0.465-4.680) mIU/L 10/18/22 10/18/22 10/18/22 Range/Units 11:28 12:25 17:25 Plt Count (150-450) k/uL Sodium (137-145) mmol/L Carbon Dioxide (22-30) mmol/L Glucose (74-99) mg/dL POC Glucose (mg/dL) 246 H 175 H (70-110) mg/dL Hemoglobin A1c (0.0-6.0) % Calcium (8.4-10.2) mg/dL Magnesium (1.6-2.3) mg/dL AST (14-36) U/L Total Protein (6.3-8.2) g/dL Albumin (3.5-5.0) g/dL TSH 0.395 L (0.465-4.680) mIU/L 10/18/22 10/19/22 Range/Units 21:24 07:21 Plt Count (150-450) k/uL Sodium (137-145) mmol/L Carbon Dioxide (22-30) mmol/L Glucose (74-99) mg/dL POC Glucose (mg/dL) 228 H 174 H (70-110) mg/dL Hemoglobin A1c (0.0-6.0) % Calcium (8.4-10.2) mg/dL Magnesium (1.6-2.3) mg/dL AST (14-36) U/L Total Protein (6.3-8.2) g/dL Albumin (3.5-5.0) g/dL TSH (0.465-4.680) mIU/L
[2022-10-19 12:15] LABS: Glucose,Whole Blood 149 mg/dL (70-110)
--- NOTE | 2022-10-19 12:51 | P.DS ---
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 Lactic acidosis secondary to hypoglycemia Diabetes mellitus type 2 History of vertigo CAD, history of NSTEMI,SVT Hypertension Hyperlipidemia History of depression Morbid obesity, BMI 34.8 Hospital course; his is a 72-year-old female with a past medical history significant for syncope, diabetes, hypertension, hyperlipidemia, depression, vertigo, and SVT. The patient is admitted to the hospital secondary to a syncopal episode. Patient was found to be hypoglycemic. She gives a history that this is the fourth time this has happened to her. She states that she is usually sitting in the chair and feels dizzy and thinks that her sugar is low so she stands up to walk into the kitchen to get something to eat when she passes out. She states when she has these episodes and takes her proximally 40 minutes to wake up. She denies any chest pain or pressure. She denies any shortness of breath. The patient's daughter reports that she was hospitalized earlier this year in [facility] in [place]. She was found to have SVT and was started on verapamil. The patient also reports that she had a medication stress test a few weeks ago which was negative. Patient was admitted to hospitalist service, cardiology were consulted, they recommended discharging patient with treatment monitor at discharge, recommend outpatient follow-up. Patient had no further episodes of syncope. Patient's insulin was discontinued PHYSICAL EXAMINATION: GENERAL: The patient is alert and oriented x3, not in any acute distress. Well developed, well nourished. HEENT: Pupils are round and equally reacting to light. EOMI. No scleral icterus. No conjunctival pallor. Normocephalic, atraumatic. No pharyngeal erythema. No thyromegaly. CARDIOVASCULAR: S1 and S2 present. No murmurs, rubs, or gallops. PULMONARY: Chest is clear to auscultation, no wheezing or crackles. ABDOMEN: Soft, nontender, nondistended, normoactive bowel sounds. No palpable organomegaly. MUSCULOSKELETAL: No joint swelling or deformity. EXTREMITIES: No cyanosis, clubbing, or pedal edema. NEUROLOGICAL: Gross neurological examination did not reveal any focal deficits. SKIN: No rashes. Plan - Discharge Summary New Discharge Prescriptions: Continue Sertraline HCl [Zoloft] 100 mg PO DAILY Benazepril [Lotensin] 5 mg PO DAILY rOPINIRole HCL [Requip] 2 mg PO BID tiZANidine [Zanaflex] 2 mg PO DAILY Meclizine [Antivert] 25 mg PO TID Dorzolamide HCl/Pf [Dorzolamide 2% Eye Drop] 1 drop BOTH EYES BID hydrOXYzine HCL [Atarax] 25 mg PO BID Rosuvastatin [Crestor] 10 mg PO DAILY Omeprazole [PriLOSEC] 40 mg PO DAILY Verapamil HCl [Verapamil ER] 180 mg PO DAILY Discontinued Insulin NPL/Insulin Lispro [humaLOG MIX 75-25 VIAL] 70 unit SQ BID No Action Cyanocobalamin (Vitamin B-12) [Vitamin B-12] 1,000 mcg PO DAILY Biotin [Biotin Disolve] 10,000 mcg PO DAILY Cholecalciferol [Vitamin D3 (125 Mcg = 5000 Iu)] 125 mcg PO DAILY Discharge Medication List Benazepril [Lotensin] 5 mg PO DAILY 05/28/14 [History] Sertraline HCl [Zoloft] 100 mg PO DAILY 05/28/14 [History] Cyanocobalamin (Vitamin B-12) [Vitamin B-12] 1,000 mcg PO DAILY 03/05/19 [ History] rOPINIRole HCL [Requip] 2 mg PO BID 03/05/19 [History] tiZANidine [Zanaflex] 2 mg PO DAILY 03/05/19 [History] Meclizine [Antivert] 25 mg PO TID 12/10/20 [History] Biotin [Biotin Disolve] 10,000 mcg PO DAILY 10/17/22 [History] Cholecalciferol [Vitamin D3 (125 Mcg = 5000 Iu)] 125 mcg PO DAILY 10/17/22 [History] Dorzolamide HCl/Pf [Dorzolamide 2% Eye Drop] 1 drop BOTH EYES BID 10/17/22 [Hist ory] Omeprazole [PriLOSEC] 40 mg PO DAILY 10/17/22 [History] Rosuvastatin [Crestor] 10 mg PO DAILY 10/17/22 [History] Verapamil HCl [Verapamil ER] 180 mg PO DAILY 10/17/22 [History] hydrOXYzine HCL [Atarax] 25 mg PO BID 10/17/22 [History] Follow up Appointment(s)/Referral(s): Julio Cesar To MD [STAFF PHYSICIAN] - 11/17/22 2:45 pm (Appointment at the [facility] office ) Cora Terry DO [Primary Care Provider] - 1-2 days Discharge Disposition: HOME SELF-CARE
--- NOTE | 2022-10-19 18:56 | P.EPPROC ---
- EP Procedure Note Electrophysiology Procedure Note: Diagnosis Syncope Baseline twelve-lead EKG showed sinus rhythm normal NH narrow QRS normal ST segments Tilt table test per protocol Baseline blood pressure 148/80 mmHg, Baseline heart rate 88 beats a minute Patient was tilted upright at an angle of 70 She is unable stand beyond 10 minutes There was no evidence for neurocardiogenic syncope or dysautonomia or orthostasis during this limited tilt study Patient could not complete the full protocol
== END 2022-10-19 13:27 | disposition home or self-care (01) ==
LOC: EC 13:52 → 6NMEDSUR 16:19
PROVIDERS: ADMIT Family Medicine; ATTEND Family Medicine
DX: R55 Syncope and collapse (principal); E11.649 Type 2 diabetes mellitus with hypoglycemia without coma; E87.20 Acidosis, unspecified; I10 Essential (primary) hypertension; G89.29 Other chronic pain; M54.2 Cervicalgia; K21.9 Gastro-esophageal reflux disease without esophagitis; E78.5 Hyperlipidemia, unspecified; M06.9 Rheumatoid arthritis, unspecified; F32.A Depression, unspecified; I25.10 Atherosclerotic heart disease of native coronary artery without angina pectoris; I25.2 Old myocardial infarction; I47.1 Supraventricular tachycardia; E66.01 Morbid (severe) obesity due to excess calories; Z68.34 Body mass index [BMI] 34.0-34.9, adult; Z23 Encounter for immunization; Z96.653 Presence of artificial knee joint, bilateral; Z79.899 Other long term (current) drug therapy; Z79.4 Long term (current) use of insulin; Z88.1 Allergy status to other antibiotic agents; Z88.2 Allergy status to sulfonamides; Z82.49 Family history of ischemic heart disease and other diseases of the circulatory system
CPT/HCPCS: 90471; 96361; 96374; 99285; 36415; 94760; 93005; 93270; 93660; 84439; 80053 ×2; 84443; 83605; 83735 ×2; 84100; 84484; 85025 ×2; 85610; 85730; 81001; 83036; 72170; 71046; 72125; 70450; 90715; G0378 ×3; J2270; J3475

== ENCOUNTER 2022-12-05 05:42 | Day surgery (SDC) | payer MEDICARE, BC ==
[2022-11-30 14:06] VITALS: BMI 34.7
[2022-12-05] MEDS: SODIUM CHLORIDE 0.9% 1,000 ML IV SCH (06:35)
[2022-12-05 06:53] LABS: Basophils % (A) 0 %; Eosinophils # (A) 0.2 k/uL (0-0.7); Eosinophils % (A) 2 %; HCT 41.8 % (34.0-46.0); HGB 13.8 gm/dL (11.4-16.0); Lymphocytes # (A) 1.6 k/uL (1.0-4.8); Lymphocytes % (A) 21 %; MCH 29.6 pg (25.0-35.0); MCV 89.6 fL (80.0-100.0); Mean Platelet Volume 8.1; Monocytes # (A) 0.4 k/uL (0-1.0); Monocytes % (A) 5 %; Neutrophils # (A) 5.5 k/uL (1.3-7.7); Neutrophils % (A) 71 %; Platelet Count 116 k/uL (150-450); RBC 4.67 m/uL (3.80-5.40); RDW 13.9 % (11.5-15.5); WBC 7.7 k/uL (3.8-10.6)
[2022-12-05 07:02] LABS: African American GFR (CKD) >90 (>60 ml/min/1.73 sqM); Anion Gap 11 mmol/L; Blood Urea Nitrogen 23 mg/dL (7-17); Carbon Dioxide 24 mmol/L (22-30); Chloride 105 mmol/L (98-107); Glucose 146 mg/dL (74-99); Non-African American GFR(CKD) 85 (>60 ml/min/1.73 sqM); Sodium 140 mmol/L (137-145)
[2022-12-05 07:03] VITALS: RESP 16
[2022-12-05] MEDS ORDERED: fentaNYL (PF) 50 MCG/ML 2 ML AMP ONE (07:18)
[2022-12-05] MEDS ORDERED: ISOPROTERENOL 250 MCG/1.25 ML SYR IV ONE (07:18)
[2022-12-05] MEDS ORDERED: MIDAZOLAM 2 MG/2 ML VIAL ONE (07:18)
[2022-12-05] MEDS ORDERED: PROPOFOL 10 MG/ML 20 ML VIAL IV ONE (07:18)
--- NOTE | 2022-12-05 07:52 | P.HPCAR ---
History of Present Illness This is Dr. To dictating an H/P on this patient The patient was interviewed and examined IMPRESSION / ASSESSMENT: Recurrent palpitations despite medical treatment, associated with syncope and presyncope Recurrent breakthrough episodes documented on medical treatment Type 2 diabetes hypertension Myalgia with statins currently trying low dose Pravachol Coronary angiography revealed elevated LV the and mild RCA stenosis in 2019 Preserved LV systolic function and recent echo in September 2022 Recent Lexiscan stress test in the [facility] did not show any evidence for ischemia Low platelet count of 116,000 PLAN: Diagnoses EP study and radiofrequency ablation of SVT Antihypertensive therapy and management of diabetes to continue Past the patient to try low dose Pravachol to see if she can tolerate it since she is diabetic HPI Patient continues to experience episodes of rapid heartbeat palpitations presyncope despite high dose verapamil and digoxin In the last one week she has not had any syncopal spells no chest discomfort or undue shortness of breath ROS: No fever chills or rigors, no cough, phlegm or expectoration, no nausea, vomiting or diarrhea, no hematuria, dysuria, no musculoskeletal complaints, no strokes or seizures, no skin lesions. EXAMINATION: Afebrile, pulse rate in the 70s, blood pressure 145/85 mmHg Breath sounds are clear no rhonchi no crackles Normal heart sounds normal S1 normal S2 Central obesity REVIEW OF LABS, ECG & MEDICAL DATA White count 7.7 thousand hemoglobin 13.8 Low platelet count 216,000 Normal electrolytes TSH normal 1.4 Normal renal function, BUN 23 and creatinine 0.7 Normal potassium Physical Exam Vitals: Vital Signs Temp Pulse Resp BP Pulse Ox 12/05/22 07:02 98.8 F 72 16 145/85 94 L Intake and Output 12/04/22 12/05/22 12/05/22 22:59 06:59 14:59 Intake Total 200 0 Balance 200 0 Intake: IV 200 0 Other: Weight 82.5 kg Past Medical History Past Medical History: Diabetes Mellitus, GERD/Reflux, Hyperlipidemia, Hypertension, Osteoarthritis (OA), Rheumatoid Arthritis (RA), Supraventricular Tachycardia (SVT), Syncope Additional Past Medical History / Comment(s): SEE DR TO'S H&P. degenerative disc, glaucoma, hypoglycemia History of Any Multi-Drug Resistant Organisms: None Reported Past Surgical History: Back Surgery, Breast Surgery, Section, Hysterectomy, Joint Replacement, Tonsillectomy, Tubal Ligation Additional Past Surgical History / Comment(s): brendan knee replacements, brendan cataracts, breast reduction, Lumbar cage inserted, neck surgery Past Anesthesia/Blood Transfusion Reactions: No Reported Reaction Past Psychological History: Depression Smoking Status: Never smoker Past Alcohol Use History: Rare Past Drug Use History: None Reported - Past Family History Mother Family Medical History: Cancer Additional Family Medical History / Comment(s): Breast Physical Examination Vital Signs Temp Pulse Resp BP Pulse Ox 12/05/22 07:02 98.8 F 72 16 145/85 94 L Intake and Output 12/04/22 12/05/22 12/05/22 22:59 06:59 14:59 Intake Total 200 0 Balance 200 0 Intake: IV 200 0 Other: Weight 82.5 kg Results 12/05/22 06:36 12/05/22 06:36 CBC 12/05/22 Range/Units 06:36 WBC 7.7 (3.8-10.6) k/uL RBC 4.67 (3.80-5.40) m/uL Hgb 13.8 (11.4-16.0) gm/dL Hct 41.8 (34.0-46.0) % Plt Count 116 L (150-450) k/uL Comprehensive Metabolic Panel 12/05/22 Range/Units 06:36 Sodium 140 (137-145) mmol/L Potassium 4.0 (3.5-5.1) mmol/L Chloride 105 (98-107) mmol/L Carbon Dioxide 24 (22-30) mmol/L BUN 23 H (7-17) mg/dL Creatinine 0.71 (0.52-1.04) mg/dL Glucose 146 H (74-99) mg/dL Calcium 9.0 (8.4-10.2) mg/dL Current Medications Generic Name Dose Route Start Last Admin Trade Name Freq PRN Reason Stop Dose Admin Sodium Chloride 1,000 mls @ 20 mls/hr 12/05/22 06:17 12/05/22 06:35 Saline 0.9% IV 01/04/23 06:18 200 mls .Q24H JUAN J Administration Intake and Output 12/04/22 12/05/22 12/05/22 22:59 06:59 14:59 Intake Total 200 0 Balance 200 0 Intake: IV 200 0 Other: Weight 82.5 kg Patient Weight 12/06/22 06:59 Weight 82.5 kg 12/05/22 06:36 12/05/22 06:36
[2022-12-05] MEDS ORDERED: LIDOCAINE 1% INJ 10MG/ML (20 ML MDV) ONE ×2 (08:05→09:08)
[2022-12-05] MEDS ORDERED: LIDOCAINE 1% INJ 10MG/ML (20 ML MDV) SQ ONE (08:10)
--- NOTE | 2022-12-05 11:17 | P.EPPROC ---
- EP Procedure Note Electrophysiology Procedure Note: Diagnosis Recurrent SVT, refractory to high dose verapamil and digoxin with RVR Final diagnosis Typical AV node reentrant tachycardia, very easily inducible Long duration procedure requiring stepwise ablation of a large area of slow pathway conduction, identified with S2 mapping during SVT Successful examination off the slow pathway and AV node reentry at the end of the procedure Tachycardia rendered noninducible Excellent fast pathway conduction at the end of the procedure Plan Discontinue verapamil and digoxin Start antihypertensive therapy employing ALLIE inhibitor as/angiotensin receptor blockers Details Patient was brought to the EP lab in a fasting state. Written informed consent was obtained prior to the procedure. Conscious sedation provided by [employer] Catheters placed via the right and left femoral veins in the high right atrium His bundle area right ventricular and Hernandez sinus Baseline measurements sinus cycle length 775 ms, W[place] interval 191 ms, QRS 91 ms in QT 429 ms Baseline AH 82 and baseline HV 56 ms Very easily inducible SVT with stimulation in the high right atrium With mechanical stimulation and pacing from the high right atrium tachycardia was extremely easily inducible It was not easily inducible with coronary sinus stimulation Sinus recovery times at 605 100 ms were 904 and 836 ms. VA Wenckebach block 3:30 milliseconds Ventricular extra stimulation was performed. The ERP 500\to 50 ms Retrograde conduction midline and decremental Parahisian pacing revealed jennyfer response SVT with short septal times a 43 ms, spontaneous termination with a retrograde a repeatedly, VAAV response with a long post-pacing interval Consistent with AV jennyfer reentry 3-D electrical chronotropic mapping was performed. A long sheath and an irrigated tip catheter used The His bundle area and the Hernandez sinus os and the roof were tagged Entrainment mapping was performed during AV jennyfer reentry with S2 stimulation Tachycardia advanced just outside and below the coronary sinus and at the floor of the coronary sinus RF ablation first applied outside and below the Hernandez sinus. RF ablation applied in this area However SVT was easily inducible RF ablation applied in the floor of the Hernandez sinus and at the roof of the Hernandez sinus No evidence for junctional rhythm outside and anterior to the floor of the coronary sinus, below it No evidence for junctional rhythm in the floor the coronary sinus on the roof of the coronary sinus Finally successful ablation with junctional beats noted at the level of the coronary sinus outside. Excellent power delivered with cord contact force resulting in illumination of the slow pathway and AV node reentry However this took a lot of mapping and sequential stepwise ablation in a large area of slow pathway conduction that was confirmed with S2 mapping during AV jennyfer reentry Following that high-dose Isuprel used an atrial stimulation performed from the high right atrium and from the coronary sinus Street pacing performed atrial extra stimulation to extrastimuli performed No inducible SVT on and off Isuprel AV node Wenckebach block 3:30 milliseconds on Isuprel and 410 ms off Isuprel WAS removed sheaths removed and hemostasis assured
--- NOTE | 2022-12-05 11:27 | P.PRLE ---
RE: ShalasebastianAnupama Dear Cora Mrs. Reynolds underwent a diagnostic EP study which revealed very easily inducible, typical AV node reentry She underwent successful ablation of the slow pathway The tachycardia was rendered noninducible She will stop verapamil and digoxin now and we'll start losartan at an initial dose of 50 mg by mouth daily which should be maximized based upon her blood pressure response Her labs today reveal a low platelet count and I don't see any medications that could be responsible for this If this persists she would need a workup for this Thank you for entrusting me with the care of the patient Warm regards Sincerely Julio Cesar To
--- NOTE | 2022-12-05 11:29 | P.EPPROC ---
- EP Procedure Note Electrophysiology Procedure Note: Extended procedure duration Patient underwent mapping of the slow pathway with S2 mapping The tachycardia successfully advanced at the level of the Hernandez sinus os and anterior to the coronary sinus outside images below the level of the floor However RF ablations at the sites did not induce any junctional beats nor did they eliminate her SVT She required detailed and prolonged mapping in a large area in a stepwise ablation This was an unusually long procedure with mapping and stepwise ablation At completion, there was no inducible SVT and there was no evidence for an antegrade slow pathway either
[2022-12-05] MEDS: LOSARTAN 50 MG TAB PO SCH (12:01)
[2022-12-05] MEDS ORDERED: SERTRALINE 100 MG TAB PO SCH ×2 (16:45→21:00)
[2022-12-05] MEDS: GLIMEPIRIDE 1 MG TAB PO SCH (17:02)
[2022-12-05] MEDS: PANTOPRAZOLE 40 MG TABLET PO SCH (17:03)
[2022-12-05] MEDS: ATORVASTATIN 20 MG TAB PO SCH (17:39)
[2022-12-05 17:40] LABS: Glucose,Whole Blood 232 mg/dL (70-110)
[2022-12-05] MEDS ORDERED: INSULIN DETEMIR (LEVEMIR) 100 UNIT/ML SYR SQ SCH (21:00)
[2022-12-05] MEDS: MECLIZINE 25 MG TAB PO SCH (21:14)
[2022-12-05] MEDS: hydrOXYzine HCL 25 MG TAB PO SCH (21:14)
[2022-12-05] MEDS: tiZANidine 4 MG TAB PO SCH (21:14)
[2022-12-05] MEDS: DORZOLAMIDE HCL BOTH EYES SCH (21:15)
[2022-12-05 21:26] LABS: Glucose,Whole Blood 245 mg/dL (70-110)
[2022-12-05] MEDS ORDERED: ACETAMINOPHEN TAB 500 MG TAB PO STA (21:34)
[2022-12-06] MEDS: SODIUM CHLORIDE 0.9% 1,000 ML IV SCH (05:59)
[2022-12-06] MEDS: PANTOPRAZOLE 40 MG TABLET PO SCH (06:26)
--- NOTE | 2022-12-06 07:50 | P.DS ---
Providers Attending physician: Julio Cesar To Primary care physician: [facility] Course: Patient is ambulating around the room. She is doing well no dizziness no lightheadedness or palpitations EKG is normal Heart sounds are normal breath sounds are clear Impression Typical AV node reentrant tachycardia status post successful ablation She had failed verapamil plus digoxin and was having recurrent SVT with RVR and syncope and presyncope Type 2 diabetes Thrombocytopenia, persistent, since 2013 Plan Discontinue verapamil and digoxin now Start losartan 50 mg daily Her platelet count has been low since 2013 Address thrombo-cytopenia, per pcp, possible drug-induced, ? related to AMARYL Plan Discharge home today Follow Dr. To in 1-2 weeks Plan - Discharge Summary Discharge Rx Participant: No New Discharge Prescriptions: New Losartan [Cozaar] 50 mg PO DAILY #90 tab Discontinued Verapamil HCl [Verapamil ER] 180 mg PO QAM Digoxin [Lanoxin] 125 mcg PO DAILY Verapamil HCl [Verapamil ER] 120 mg PO HS No Action Sertraline HCl [Zoloft] 100 mg PO DAILY tiZANidine [Zanaflex] 2 mg PO BID Meclizine [Antivert] 25 mg PO TID Dorzolamide HCl/Pf [Dorzolamide 2% Eye Drop] 1 drop BOTH EYES BID hydrOXYzine HCL [Atarax] 25 mg PO BID Rosuvastatin [Crestor] 10 mg PO DAILY Cholecalciferol [Vitamin D3 (125 Mcg = 5000 Iu)] 125 mcg PO DAILY Glimepiride [Amaryl] 1 mg PO DAILY Cyanocobalamin (Vitamin B-12) [Vitamin B-12] 1,000 mcg PO DAILY rOPINIRole HCL [Requip] 2 mg PO BID Omeprazole [PriLOSEC] 40 mg PO DAILY Insulin Detemir [Levemir Flexpen] 25 units SQ HS Biotin [Biotin Disolve] 10,000 mcg PO DAILY Discharge Medication List Sertraline HCl [Zoloft] 100 mg PO DAILY 05/28/14 [History] tiZANidine [Zanaflex] 2 mg PO BID 03/05/19 [History] Meclizine [Antivert] 25 mg PO TID 12/10/20 [History] Dorzolamide HCl/Pf [Dorzolamide 2% Eye Drop] 1 drop BOTH EYES BID 10/17/22 [History] Omeprazole [PriLOSEC] 40 mg PO DAILY 10/17/22 [History] Rosuvastatin [Crestor] 10 mg PO DAILY 10/17/22 [History] hydrOXYzine HCL [Atarax] 25 mg PO BID 10/17/22 [History] Biotin [Biotin Disolve] 10,000 mcg PO DAILY 11/30/22 [History] Cholecalciferol [Vitamin D3 (125 Mcg = 5000 Iu)] 125 mcg PO DAILY 11/30/22 [History] Cyanocobalamin (Vitamin B-12) [Vitamin B-12] 1,000 mcg PO DAILY 11/30/22 [History] Glimepiride [Amaryl] 1 mg PO DAILY 11/30/22 [History] Insulin Detemir [Levemir Flexpen] 25 units SQ HS 11/30/22 [History] Losartan [Cozaar] 50 mg PO DAILY #90 tab 12/05/22 [Rx] rOPINIRole HCL [Requip] 2 mg PO BID 12/05/22 [History] Follow up Appointment(s)/Referral(s): Julio Cesar To MD [STAFF PHYSICIAN] - 12/12/22 11:30 am (Follow-up with Rachael Rodríguez in 1-2 weeks Stop verapamil, stop digoxin Start losartan 50 mg by mouth daily) Activity/Diet/Wound Care/Special Instructions: Post EP study - Ablation instructions 1. Keep access sites dry for 2 days. 2. No heavy lifting or straining for 2 days. 3. Avoid bending the hips repeatedly for 2 days. 4. You may go up and down stairs slowly Call if the following is noted 1. Bleeding, increasing swelling or pain at the access sites. 2. Increasing chest discomfort, especially upon taking a deep breath. 3. Increasing shortness of breath, at rest or with exertion. 4. Undue cough / phlegm 5. Difficulty or pain while swallowing. 6. Pain or change in color in the extremities. 7. Fever, chills, rigors. 8. Increasing headache or neurologic symptoms. 9. Dizziness, fainting, palpitations Stop verapamil Stop digoxin Start losartan 50 mg by mouth daily Discharge Disposition: HOME SELF-CARE
[2022-12-06 08:27] LABS: Glucose,Whole Blood 184 mg/dL (70-110)
[2022-12-06] MEDS: hydrOXYzine HCL 25 MG TAB PO SCH (08:34)
[2022-12-06] MEDS: MECLIZINE 25 MG TAB PO SCH (08:36)
[2022-12-06] MEDS: tiZANidine 4 MG TAB PO SCH (08:36)
[2022-12-06] MEDS: LOSARTAN 50 MG TAB PO SCH (08:37)
[2022-12-06] MEDS: GLIMEPIRIDE 1 MG TAB PO SCH (08:37)
[2022-12-06] MEDS: DORZOLAMIDE HCL BOTH EYES SCH (08:37)
[2022-12-06] MEDS: ATORVASTATIN 20 MG TAB PO SCH (08:37)
[2022-12-06] MEDS ORDERED: CHOLECALCIFEROL 125 MCG (5000 IU) TABLET PO SCH (09:00)
[2022-12-06] MEDS ORDERED: NON FORMULARY DRUG (Biotin [Biotin Disolve] 10,000 MCG Tablet) PO SCH (09:00)
[2022-12-06] MEDS ORDERED: CYANOCOBALAMIN 500 MCG TAB PO SCH (09:00)
[2022-12-06 09:23] VITALS: BP 132/66; PULSE 72; TEMP 98.4
== END 2022-12-06 10:16 | disposition home or self-care (01) ==
LOC: CATHEP 05:42 → 6NMEDSUR 10:55 → CATHEP 12-06 10:16
PROVIDERS: ATTEND Internal Medicine Clinical Cardiac Electrophysiology
DX: I47.1 Supraventricular tachycardia (principal); I44.1 Atrioventricular block, second degree; I25.10 Atherosclerotic heart disease of native coronary artery without angina pectoris; E11.9 Type 2 diabetes mellitus without complications; E78.5 Hyperlipidemia, unspecified; I10 Essential (primary) hypertension; K21.9 Gastro-esophageal reflux disease without esophagitis; D69.6 Thrombocytopenia, unspecified; Z79.84 Long term (current) use of oral hypoglycemic drugs; M06.9 Rheumatoid arthritis, unspecified; F32.A Depression, unspecified; M19.90 Unspecified osteoarthritis, unspecified site; Z79.899 Other long term (current) drug therapy; Z88.2 Allergy status to sulfonamides; Z88.1 Allergy status to other antibiotic agents; Z88.5 Allergy status to narcotic agent
CPT/HCPCS: 93653; 93623; 86900; 86901; 80048; 84443; 85025; 86850; C1894; C1769; C1760; C1730 ×3; C1893; C1732; J2250; J2001; J3010; J2704